=== PATIENT | male | born 1980 | race Caucasian/White ===

== ENCOUNTER → 2018-05-12 15:04 | Outpatient (CLI) | payer BC, SELFPAY ==
[2018-05-12 17:40] LABS: Hematocrit 43.4 % (40-54); Hemoglobin 15.1 g/dl (13.0-16.5); Mean Corp Hgb Conc 34.8 g/gl (32-36); Mean Corpuscular Hgb 32.3 pg (27.0-32.0); Mean Corpuscular Volume 92.7 fL (80-94); Mean Platelet Vol. 9.7 fl (6.2-12.0); Platelet Count 195 K/mm3 (150-450); RBC Distribution Width CV 12.4 % (11.6-14.6); RBC Distribution Width SD 41.3 fl (35.1-43.9); Red Blood Count 4.68 M/mm3 (4.6-6.2); White Blood Count 5.9 K/mm3 (4.4-11.0)
[2018-05-12 17:48] LABS: Scan Indicated on CBC? Y/N NO
[2018-05-12 18:03] LABS: AST(SGOT) 23 U/L (15-37); Alanine Aminotransfer ALT/SGPT 37 U/L (16-61); Albumin, Serum 4.2 g/dL (3.2-5.0); Alkaline Phosphatase 62 U/L (45-117); Bilirubin, Direct 0.08 mg/dL (0.00-0.30); CRP < 2.90 mg/L (0.0-3.0); Globulin 3.1 g/dL (2.2-4.2); Protein, Total 7.3 g/dL (6.4-8.2)
[2018-05-14 16:12] LABS: Endomysial Antibody IgA Negative (Negative)
[2018-05-15 11:13] LABS: Immunoglobulin A 125 mg/dL (90-386); t-Transglutaminase IgA <2 U/mL (0-3)
--- OUTSIDE RECORDS SUMMARY | 2018-07-17 14:25 | XMS RPT_ITS | Clinical Summary ---
:1980 Author Organization [facility] Address [address] [place] [address] Phone Care Team Providers Name Role Phone Donna Minor Unavailable Conditions or Problems Problem Name Problem Onset Status Entry Provider Comment Standard Annotate Code Date Date Description Sprain of S83.91xA Active Feliciano M Sprain of unspecified (ICD-10-CM / Sergio YODER unspecified site of right ) site of knee, initial right knee, encounter initial encounter Knee pain, [id number] Active Feliciano Beckman Knee pain right (SNOMED / Sergio YODER CT) Medications Medication Instructions Start Stop Generic Name NDC Provider Date Date PRILOSEC OTC take as directed OMEPRAZOLE [id number] Rajani E TBEC 3 MAGNESIUM Rivas SHAMPOO ASSISTANT TBEC ADVIL 200 MG take as directed IBUPROFEN [id number] Rajani E CAPS 3 Rivas SHAMPOO ASSISTANT Medications Administered No information available. Allergies, Adverse Reactions, Alerts Allergy Name Reaction Start Date Severity Status Provider Description CODEINE Critical Active Rajani E Rivas PHOSPHATE SHAMPOO ASSISTANT Results Date Name Value Unit Range Flag Description Office Visit MEDS REVIEW Done Documentation of current medications (procedure) SMOK ADVICE yes Smoking cessation education (procedure) ORALTOBACUSE Never Tobacco smoking status NHIS SMOK STATUS Current every Tobacco use [facility] day smoker Plan of Care Type Date Detail Referral Physical Therapy [facility] [address] [place] [address], [address] Referral Physical Therapy [facility], [address] [place] [address], [address] Pending order MRI Joint Lower Extremity Procedures No information available. Vital Signs Date Name Value Unit Description BMI (Body Mass Index) 26.91 kg/m2 Body Mass Index [Ratio] Weight Measured 204 [lb_av] weight E&M - 3141-9 Body Temperature 98.5 [degF] temperature E&M BP Diastolic 66 mm[Hg] blood pressure, diastolic - 8462-4 BP Systolic 144 mm[Hg] blood pressure, systolic - 8480-6 BSA (Body Surface 2.11 body surface area Area) Heart Rate 50 /min pulse rate E&M - 8867-4 Height 73 [in_us] height E&M - 8302-2 O2 % BldC Oximetry 99 % oxygen saturation, oximetry Respiratory Rate 16 /min respiratory rate E&M - 9279-1
--- OUTSIDE RECORDS SUMMARY | 2018-07-17 14:25 | XMS RPT_ITS ---
:1980 Author Organization [facility] Care Team Providers Name Role Phone Fredis Toledo Attending Unavailable Fredis Toledo Referring Unavailable Primay Care Physicia, No Primary Care Unavailable PROBLEMS PROBLEMS No Problem Records FoundPROCEDURES PROCEDURES No Procedure Records FoundRESULTS RESULTS CBC-COMPLETE BLOOD CNT Collected: 05/12/2018 Status: F Source: [place] NO DIFF 3:11 PM [facility] [place] CODE TESTS RESULT OUT OF RANGE REFERENCE UNITS LAB L100.1000 4.4-11.0 K/mm3 Normal WBC 5.9 LAB L100.1200 4.6-6.2 M/mm3 Normal RBC 4.68 LAB L100.1300 13.0-16.5 g/dl Normal HGB 15.1 LAB L100.1400 40-54 % Normal HCT 43.4 LAB L100.1500 80-94 fL Normal MCV 92.7 LAB L100.1600 27.0-32.0 pg High MCH 32.3 LAB L100.1700 32-36 g/gl Normal MCHC 34.8 LAB L100.1810 11.6-14.6 % Normal RDW CV 12.4 LAB L100.1820 35.1-43.9 fl Normal RDW SD 41.3 LAB L100.1900 150-450 K/mm3 Normal PLT 195 LAB L100.2000 6.2-12.0 fl Normal MPV 9.7 Performed By: #### L100.0500 #### [facility] [place], [address] LIVER PROFILE Collected: 05/12/2018 Status: F Source: [place] 3:11 PM [facility] [place] TYPE CODE TESTS RESULT OUT OF RANGE REFERENCE UNITS LAB L501.1500 6.4-8.2 g/dL Normal T PROT 7.3 LAB L501.1800 3.2-5.0 g/dL Normal ALB 4.2 LAB L501.1950 2.2-4.2 g/dL Normal GLOB 3.1 LAB L501.4100 15-37 U/L Normal AST 23 LAB L501.4305 45-117 U/L Normal ALK P 62 LAB L501.4405 16-61 U/L Normal ALT 37 LAB L501.4600 0.20-1.00 mg/dL Normal T BILI 0.60 LAB L501.4700 0.00-0.30 mg/dL Normal D BILI 0.08 Performed By: #### L500.3400, L501.6710 #### [facility] [address], [place], [id number] CRP Collected: 05/12/2018 Status: F Source: [place] 3:11 PM [facility] [place] TYPE CODE TESTS RESULT OUT OF RANGE REFERENCE UNITS LAB L501.6710 0.0-3.0 mg/L Normal < 2.90 C-REACTIVE PROT Result Comment: C-Reactive Protein (CRP) provides useful information for the diagnosis, therapy and monitoring of inflammatory processes and associated diseases. For the evaluation of Relative Risk for Cardiovascular Disease, a High Sensitivity CRP (HSCRP) should be ordered. Performed By: #### L500.3400, L501.6710 #### [facility] [address] [place], [place], [address] CELIAC DISEASE Collected: 05/12/2018 Status: F Source: [place] PROFILE 3:11 PM [facility] [place] TYPE CODE TESTS RESULT OUT OF RANGE REFERENCE UNITS LAB L3200.1400 90-386 mg/dL Normal IMMUNO A 125 Result Comment: Performed at: - [address] [id number] [employer] Foreman: Fredis Floyd PhD, Phone: [phone] LAB L3712.2909 0-3 U/mL Normal tTG IGA <2 Result Comment: Negative 0 - 3 Weak Positive 4 - 10 Positive >10 Tissue Transglutaminase (tTG) has been identified as the endomysial antigen. Studies have demonstr- ated that endomysial IgA antibodies have over 99% specificity for gluten sensitive enteropathy. LAB L3410.2975 Negative Normal ENDOMYSIAL IGA Negative Performed By: #### L3410.2400 #### [facility] (refer to report for specific site) refer to report for address and phone number PROGRESS Observed: 06/10/2017 Status: COMPLETED Source: [place] 8:41 PM [facility] RE[facility] HNO ID: [id number] Author: Campbell Garzon Service: (none) Author Type: Physician Type: Progress Notes Filed: 06/10/2017 9:17 PM Note Text: Patient presents with: Rash: lightheaded, dizziness was on amoxicillin took 3 pills reaction started, switched to zpak yesterday HPI: Treated for right otitis media 06/08/17. He was concerned he was having an allergic reaction to amoxicillin. Online clinic changed his antibiotic to zpak. Last amoxicillin 1 1/2 days ago. Dizziness: Feels like he is moving when he is not. Associated with nausea. No ear pain but the ear still feels plugged. Rash: Location: Behind and below left axilla Present for 2 days MEDICATIONS: omeprazole (PRILOSEC) 10 mg capsule Take 10 mg by mouth once daily. amoxicillin (AMOXIL) 875 mg tablet Take 1 tablet by mouth twice daily for 10 days. IBUPROFEN IB ORAL Take by mouth. ALLERGIES: ALLERGIES Allergen Reactions - Amoxicillin Intolerance - Codeine GI Upset VITALS: BP 100/64 Pulse 60 Temp 36.6 ?C (97.8 ?F) (Tympanic) Resp 14 Wt 88.9 kg (196 lb) PHYSICAL EXAM: GEN: pleasant, no acute distress, alert SKIN: New rash-petechia excoriation left back posterior to and below the level of the axilla. Chronic rash has small patches of faint fine scale on torso. Eyes: PERRL, EOMI, sclera clear Ears: Canals clear; RTM with effusion but without erythema or bulge; LTM without erythema, bulge, or effusion; Sinuses: non-tender frontal, non-tender maxillary Mouth/throat: MMM, no pharyngeal erythema or exudate Neck: Supple, no thyromegaly, nontender, no lymphadenopathy Heart: regular rate and rhythm, no murmurs Lungs: clear to auscultation ASSESSMENT/PLAN: 1. Vertigo - ICD9: 780.4, ICD10: R42 (primary diagnosis) Not likely a symptom of allergic reaction. May be from current ear infection. Finish zpak. Declines antivert. 2. Rash - ICD9: 782.1, ICD10: R21 Excoriation, does not appear to be allergic rash. Campbell Garzon MD PROGRESS Observed: 06/09/2017 Status: COMPLETED Source: [place] 4:02 PM [facility] REPOSITORY HNO ID: [id number] Author: [facility] Provider Service: (none) Author Type: Physician Type: Progress Notes Filed: 06/09/2017 11:12 AM Note Text: null (CCF:Not available [id number]) Visit Summary for Feliciano Landrum - Gender: Male - Date of : 1980 ( ) Date: - Duration: 7 minutes Patient: Feliciano Landrum Provider: Yolande Holden Patient Contact Information Address [address] [place] [address]; [place] [phone] Visit Topics Ihave an ear infection doctor prescribed amoxicillin its making light headed and neausus [Added By: Self - 2017-06-09] Triage Questions Please provide your current address. We need this on file in case of a medical emergency.Answer [[address] [place] [address]] Conversation Transcripts [Notification] You are connected with Yolande Holden Family Physician.[Notification] Feliciano Landrum is located in [place].[Notification] Feliciano Landrum has shared health history...[Notification] Yolande Holden has added a prescription (see the Visit Notes tab). Diagnosis Nausea Value: R11.0 Code: ICD-10-CM Procedures Value: 63888 Code: CPT-4 ONLINE E/M BY PHYS/QHP Medications Prescribed azithromycin Strength : 250 mg Frequency : Patient Instructions : Take 2 tabs po on day 1 then take 1 tab po qd from days 2-5 Refills : 0 Instructions to the Pharmacist : Substitutions allowed Provider Notes We strongly encourage you to share the following record of today's visit with your primary care physician. Mode of Communication: Video HPI: Pt reports that he was seen in Urgent Care with [facility] yesterday and dx with AOM. Started on Amoxicillin and he reports that he has been with anxiousness, nausea, light headiness since he started. He reports that as a kid he was always told that PCN made him sick. He has not been with PCN in a while. Now with new onset px he is with SE. He has no fever. No rash. No breathing issues. He does not want to take the amoxicillin any longer. No recent abx for pt. This is the first abx in many years per patient. PMH: GERDMeds: NSAID's and Prilosec Allergies: Codeine Exam: Gen: Alert, normal mental status and interaction, no visible distress, non- toxic appearance. Resp; wnl. No increased WOBSinus; + congestion Assessment/Plan; 1. AOM; dx yesterday in person at urgent care. On amoxicillin with reported SE and pt requesting change in abx. Will change to zpak for pt. Rare abx use. He is established at [facility] and goes to urgent care as needed. Follow up:1.If there are any questions or problems with the prescription, call [phone] anytime for assistance. 2.Please re-connect for another online visit or see an in-person provider should your symptoms worsen or persist. 3.Taking a probiotic (either in pill form or by eating yogurt that contains probiotics) while using antibiotics can help prevent some of the troublesome side effects that antibiotics can sometimes cause.4.Please print a copy of this note and send it to your regular doctor, or take it to your next visit so it may be included in your medical record. Patient voiced understanding and agrees to plan.Please see your PCP on an annual basis. Electronically signed by: Yolande Holden( ) PROGRESS Observed: 06/08/2017 Status: COMPLETED Source: [place] 7:32 AM [facility] REPOSITORY HNO ID: [id number] Author: Nicole Soto) Sow[place] Service: (none) Author Type: Nurse Practitioner Type: Progress Notes Filed: 06/08/2017 7:46 AM Note Text: HPI Feliciano Landrum is a 37 year old male who presents with cough, congestion, ear pain, sinus pressure. He thinks he has the flu, his child was ill with the flu. He wants to make sure he does not have an ear infection. He has been using Sudafed for cough at home. Review of Systems Constitutional: Positive for chills, fever and malaise/fatigue. HENT: Positive for congestion and ear pain. Negative for sore throat. Respiratory: Positive for cough. Negative for shortness of breath. Cardiovascular: Negative. Negative for chest pain. Gastrointestinal: Positive for diarrhea and nausea. Negative for abdominal pain and vomiting. Musculoskeletal: Positive for myalgias. Skin: Negative. Negative for rash. Neurological: Positive for headaches. BP 132/80 Pulse 66 Temp 37.2 ?C (99 ?F) (Tympanic) Resp 16 Wt 88.9 kg (196 lb) SpO2 99% PAST MEDICAL HISTORY Diagnosis Date - Back pain PAST SURGICAL HISTORY Procedure Laterality Date - TONSILLECTOMY HX ALLERGIES Codeine MEDICATIONS omeprazole (PRILOSEC) 10 mg capsule Take 10 mg by mouth once daily. IBUPROFEN IB ORAL Take by mouth. No family history on file. Social History Substance Use Topics - Smoking status: Current Every Day Smoker - Smokeless tobacco: Never Used - Alcohol use Not on file Physical Exam Constitutional: He is well-developed, well-nourished, and in no distress. HENT: Head: Normocephalic. Right Ear: External ear and ear canal normal. Tympanic membrane is injected. A middle ear effusion is present. Left Ear: Tympanic membrane, external ear and ear canal normal. Nose: Nose normal. No rhinorrhea. Mouth/Throat: Uvula is midline, oropharynx is clear and moist and mucous membranes are normal. Mucous membranes are not pale and not dry. No posterior oropharyngeal edema or posterior oropharyngeal erythema. Eyes: Conjunctivae are normal. Right eye exhibits no discharge. Left eye exhibits no discharge. Neck: Neck supple. Cardiovascular: Normal rate, regular rhythm and normal heart sounds. Pulmonary/Chest: Effort normal and breath sounds normal. No respiratory distress. He has no wheezes. He has no rales. Lymphadenopathy: He has no cervical adenopathy. Neurological: He is alert. Skin: Skin is warm and dry. No rash noted. Nursing note and vitals reviewed. ASSESSMENT/PLAN: 1. Other acute nonsuppurative otitis media of right ear, recurrence not specified - ICD9: 381.00, ICD10: H65.191 - Will begin treatment with Amoxicillin for 10 days - The patient should also be given sudafed for the first 5- 7 days of treatment. - Supportive care with plenty of fluids, rest, and analgesia prn. - AMOXICILLIN 875 MG TABLET - Follow-up with your PCP in 3-5 days if symptoms have not improved or sooner if symptoms worsen - Discussed red flags and need for immediate medical evaluation if any occur. - Discussed supportive care treatment with fluids, rest and analgesia. - Discussed expected course of illness Nicole Deng CNP ALLERGIES ALLERGIES DATE TYPE / CODE NAME / CODE REACTION SEVERITY SOURCE 07/16/2016 Drug codeine/H25517 Nausea/Vom/Diar Unknown [facility] Allergy/4160 1550(RXNORM) [facility] [address]25(SNOMED Repository CT) 02/15/2014 DRUG CODEINE GI UPSET [facility] INGREDI/4195 [facility] 11401(SNOMED Repository CT) ENCOUNTERS ENCOUNTERS ADMIT/DISCHARGE ACCOUNT ADMITTING ENCOUNTER LOCATION SOURCE NUMBER CLASS 05/12/2018 [id number] [facility] ing:MTLAB Repository 06/10/2017/06/10/19 [id number] Ambulatory [address] [place] Repository 06/08/2017/06/10/19 [id number] Ambulatory [address] Repository PAYERS PAYERS ENCOUNTER GUARANTOR PAYER SUBSCRIBER SOURCE 05/12/2018 FELICIANO MULTANI Insurance:ANTHEMPolic WALLACEDOB: [facility] Number: [id number] 42951Zbf: ([phone] [id number] Repository [phone] () Date:[id number] [place] [id number]: 05/12/2018 [facility] Number: Effective Repository Date:2018-05-12
== END ==
PROVIDERS: Referring Provider Internal Medicine Gastroenterology; Visit Provider Internal Medicine Gastroenterology
DX: R10.9 Unspecified abdominal pain (principal); R19.7 Diarrhea, unspecified
CPT/HCPCS: 36415; 80076; 82784; 83516; 85027; 86140; 86255

== ENCOUNTER → 2019-05-18 08:47 | Outpatient (CLI) | payer BC, SELFPAY ==
[2016-07-23 06:10] VITALS: BMI 26.9
[2019-05-23 14:08] LABS: QNTFERON TB Mitogen Value > 10.00 IU/mL (.); QNTFERON TB Nil Value 0.04 IU/mL (.); QNTFERON TB1+ Ag Value 0.05 IU/mL (.); QNTFERON TB2+ Ag Value 0.04 IU/mL (.)
[2019-05-23 14:36] LABS: Angiotensin Convert Enzyme 47 U/L (14-82); HLA B27 Negative (.); QNTIFERON TB Positive Criteria Negative (Negative)
== END ==
PROVIDERS: Referring Provider Ophthalmology; Visit Provider Ophthalmology
DX: H20.021 Recurrent acute iridocyclitis, right eye (principal)
CPT/HCPCS: 36415; 81374; 82164; 86480

== ENCOUNTER 2021-02-13 15:38 | Emergency (ER) | payer BC, SELFPAY ==
[2021-02-13 15:39] VITALS: BP 127/71; PULSE 65; RESP 14; TEMP 36.7; O2SAT 98; BMI 24.7
--- NOTE | 2021-02-13 15:54 | EDS_ITS ---
HPI History of Present Illness Chief Complaint: Rash Detail of Chief Complaint: Redness and swelling to the left forearm Informant: patient Narrative Narrative: Patient presents with redness and swelling to left forearm that he initially noticed yesterday less than 24 hours ago. Patient states that he had a small circular area that was itchy. He is not sure if he got stung by an insect as he did not feel 1. Today he is noticed increased redness and swelling and there was an area that looked like there was spreading up towards his antecubital region. He has had no fevers or chills or sweats. Patient denies IV drug use. Patient is a smoker. Prior similar symptoms: Yes PFSH PFSH Home Medications NK 02/13/21 [History Last Taken Unknown] clindamycin HCl [Cleocin HCl] 300 mg PO Q6H #40 capsule 02/13/21 [Rx Last Taken Unknown] Allergy/AdvReac Type Severity Reaction Status Date / Time codeine Allergy Nausea/Vom/ Verified 02/13/21 15:39 Diarrhea Penicillins [PCN] Allergy Hives Verified 02/13/21 15:39 Surgical History (Updated 02/13/21 @ 15:49 by Teresa Beach) Hx of tonsillectomy Social History Smoking Status: Current every day smoker tobacco type: cigarettes ROS ROS ED Constitutional Constitutional ED: Reports systems reviewed and no addt'l complaints, except as documented; Denies body ache(s), change in weight or chills Eyes Eyes: Denies acute decrease in peripheral vision, change in vision, double vision or loss of vision ENT ENT ED: Reports none; Denies ear pain, lip swelling, loss taste/smell, neck pain, otalgia or sore throat Cardiovascular Cardiovascular: Reports none; Denies abdominal pain, chest pain with activity, leg edema, lightheadedness, palpitations, rapid heart rate or syncope Respiratory/Chest Respiratory/Chest: Reports none; Denies change in mental status, dry cough, dyspnea, hemoptysis, shortness of breath at rest or shortness of breath with exertion Gastrointestinal Gastrointestinal: Reports none; Denies abdominal pain, change in stool character, diarrhea, hematemesis, hematochezia, melena, rectal bleeding or vomiting Genitourinary Genitourinary ED: Reports none; Denies abdominal discomfort, anuria, dysuria, genital pain or polyuria Musculoskeletal Musculoskeletal: Reports none; Denies arthralgias, back pain, difficulty walking, extremity pain, muscle weakness or myalgias Integumentary Reports none, rash and other Details: Redness and swelling to left forearm ; Denies abscess Neurologic Neurologic: Reports none; Denies abnormal gait, confusion, focal weakness, frequent falls, headache(s), loss of vision, numbness, paresthesias, radicular pain, vertigo or weakness Psychiatric Psychiatric: Reports systems reviewed and no addt'l complaints, except as documented and none; Denies behavioral changes, confusion, difficulty concentrating, hallucinations, suicidal ideation, tactile hallucinations or visual hallucinations Endocrine Endocrinology: Denies none, cold intolerance, excessive sweating, fatigue or heat intolerance Hematologic/Lymphatic Hematologic/Lymphatic: Reports none; Denies anemia, easy bleeding or easy brui sing Allergic/Immunologic Allergic/Immunologic ED: Denies as per HPI, none, lip swelling, mouth swelling, throat swelling, tongue swelling or hives EXAM Physical Exam Const Vital Signs: 02/13/21 15:39 Temperature 98.1 F Temperature Source Temporal Pulse Rate 65 Respiratory Rate 14 Blood Pressure 127/71 H Blood Pressure Mean 89 Pulse Ox 98 Oxygen Delivery Method Room Air Positive well nourished and well developed General Appearance ED: well developed and NAD HEENT Reports TM's clear and moist mucous membranes normocephalic and atraumatic; Negative for trauma or tenderness Tympanic Membrane ED: Yes TM's clear Eyes PERRL and EOMs intact bilaterally General Eye ED: Negative for pale conjunctiva or scleral icterus Neck no lymphadenopathy, supple and no JVD General: Negative for tenderness Chest Wall inspection of chest normal and palpation of chest normal Chest: Negative for tenderness Resp normal respiratory effort and clear to auscultation bilaterally Effort and Inspection: Negative for respiratory distress or pain with movement Auscultation: Negative for rhonchi, wheezes or diminished lung sounds Cardio regular rate, regular rhythm, S1 normal heart sound, S2 normal heart sound and no murmurs Peripheral Pulses: pulses 2+ throughout GI normal to inspection, nondistended, normoactive bowel sounds, soft to palpation, non-tender, non-distended and no masses Back/Spine no CVA tenderness and no thoracic nor lumbar tenderness Extremity Extremity Narrative: Patient has redness and swelling to the left forearm. No obvious breaks in the skin noted except over central mid forearm there is a small area where the patient felt there was a small opening in the skin that if pressed some serous fluid with come from. I could not appreciate any drainage from the wound. Patient does have some faint streaking to the antecubital region. Area of erythema measures 12 cm x 6 cm General Extremety ED: Yes edema General Extremity: edema Neuro oriented x3, CN's II-XII intact bilaterally, no sensory deficits noted and gait normal Sensorium / Orientation: awake, alert, oriented to person, oriented to place and oriented to time Motor Exam: strength 5/5 throughout and strength abnormal Psych mental status grossly normal Skin no rashes or lesions noted and no wounds MDM MDM MDM Narrative Medical decision making narrative: Patient looks well. There is no abscess to drain at this time. I suspect likely cellulitic changes however is unclear if this is from an insect bite. Patient will be started on clindamycin p.o. as he is pen allergic. Patient advised to return if fever, increased redness or swelling, or condition should worsen anyway. Patient had the area of erythema outlined with permanent marker. Discharge Plan Triage Chief Complaint: Rash ED Provider: Wagner Zhou Dx/Rx/DC Orders Clinical Impression: Cellulitis of forearm, left Instructions: ED Cellulitis Prescriptions: New clindamycin HCl [Cleocin HCl] 300 MG capsule 300 mg PO Q6H Qty: 40 RF: 0 No Action NK RF: 0 Primary Care Provider: Care Physician,No Primary Referrals: Sandeep Haque MD [STAFF PHYSICIAN] - 2 Days for wound check Care Physician,No Primary [Primary Care Provider] - Disposition Disposition: Home, Self Care
[2021-02-13] MEDS: Clindamycin HCl 150 MG Capsule 300 MG PO (16:08)
== END 2021-02-13 16:10 | disposition home or self-care (01) ==
LOC: ED 16:06
PROVIDERS: Emergency Provider Emergency Medicine
DX: L03.114 Cellulitis of left upper limb (principal); F17.210 Nicotine dependence, cigarettes, uncomplicated
CPT/HCPCS: 99281; 99283

== ENCOUNTER 2021-07-05 11:02 | Emergency (ER) | payer OTHER, BC, SELFPAY ==
[2021-07-05 11:03] VITALS: BP 137/56; PULSE 49; RESP 16; TEMP 35.8; O2SAT 100; BMI 22.4
--- NOTE | 2021-07-05 11:55 | RAD_ITS ---
STUDY: X-RAY - LEFT HAND, ATTENTION FIFTH FINGER REASON FOR EXAM: Male, 41 years old. Injury -- 5th finger TECHNIQUE: 3 view(s) of the finger were obtained. COMPARISON: None. FINDINGS: Normal metacarpal head. Normal metacarpophalangeal joint. Normal proximal phalanx. Normal middle phalanx. Avulsion fracture involving the tuft of the distal phalanx of the fifth digit. Normal proximal interphalangeal joint. Normal distal interphalangeal joint. Soft tissue swelling. RAD/Finger(s) Min 2 Views IMPRESSION: Tiny avulsion fracture of the tuft of the distal phalanx of the fifth digit. Electronically Signed: Francisco Daley MD at 12:50 EST ,
--- NOTE | 2021-07-05 12:16 | EX.ED.UPPERE ---
HPI History of Present Illness Chief Complaint: Laceration Informant: patient Occured/Mechanism Mechanism/Context: Yes blunt trauma and Yes work related Onset/Context/Timing Onset: Today Context: Sudden Onset Timing: Continuous Quality of Pain: Aching Location: Left little finger Current Severity: Mild Maximum Severity: Severe Worsened by: Palpation, moving Relieved by: Keeping it wrapped and remaining still Associated Symptoms Associated Symptoms: Negative for Parasthesia, Weakness and Loss of Funtion Narrative Narrative: Patient works for a local [employer], he was using a tool a pair of channel locks and accidentally crushed his little finger while working on a line. [id number]. Tetanus Immunization: >10 years PFSH PFSH Medical History Smoker Medical History no medical history no medical history Home Medications cefadroxil 500 mg PO BID #14 cap 07/05/21 [Rx Last Taken Unknown] Allergy/AdvReac Type Severity Reaction Status Date / Time codeine Allergy Nausea/Vom/ Verified 07/05/21 11:05 Diarrhea Penicillins [PCN] Allergy Hives Verified 07/05/21 11:05 Surgical History (Updated 07/05/21 @ 12:44 by Blane Lee) Hx of arthroscopy of right knee Hx of tonsillectomy Social History Smoking Status: Current every day smoker tobacco type: cigarettes ROS ROS ED Constitutional Constitutional ED: Denies chills or fever(s) Musculoskeletal Musculoskeletal: Reports extremity pain; Denies neck pain Integumentary Reports wounds; Denies Abrasions or rash Neurologic Neurologic: Denies paresthesias or weakness EXAM Physical Exam Const Vital Signs: 07/05/21 11:03 Temperature 96.4 F L Temperature Source Temporal Pulse Rate 49 L Respiratory Rate 16 Blood Pressure 137/56 H Blood Pressure Mean 83 Pulse Ox 100 Oxygen Delivery Method Room Air Positive well nourished and well developed General Appearance ED: well developed and NAD Neck full ROM and supple Back/Spine normal ROM and normal to inspection Extremity Extremity Narrative: Tender distal phalanx left fifth finger. No deformities. Nailbed laceration and nail injury. Limited range of motion at the DIP joint only. Able to extend without any difficulty. Neuro oriented x3, no focal motor deficits and no sensory deficits noted Sensorium / Orientation: alert Psych mental status grossly normal and thought process normal Skin Skin Narrative: Laceration across the dorsum of the distal phalanx of the left small finger involving the nail, the distal half of the nail is present and adherent to the nail bed distal to the lac, completely from the proximal nail, the proximal half is intact in the cuticle and the nailbed, with a full-thickness nailbed laceration 2.5 cm progressing beyond the nailbed on either side as well. Rashes: no rashes MDM MDM MDM Narrative Medical decision making narrative: X-ray shows an avulsion fracture at the distal tip of the distal phalanx, so he will be put on prophylactic antibiotics given that this is a minor open fracture of the finger. The laceration was repaired and the nail was removed see the procedure note. Follow-up with Workmen's Comp. given appropriate work restrictions. Offered analgesics besides ibuprofen but the patient declined so he was given a dose of ibuprofen prior to discharge. The bulky dressing he has will work adequately as a splint for this. Procedures Lacerations left 5th finger nailbed: Length: 2.5 cm Depth: Sub Q Shape: Linear (mostly) Prep: Sterile Conditions and Chlorhexadine Laceration repair: Digital block, Irrigated and Lidocaine (11cc, 1%) Irrigated (ml): 100 Number of Sutures/Veblen: 5 Suture Information: Ethilon, Simple and 5-0 Other Procedures Procedure(s): Nail removal after digital block; the 2 halves of the nail were both removed separately, by bluntly dissecting them with the backside of scissors from the nailbed. No additional injury to the nailbed was caused. After repairing the nailbed laceration, 3 sutures to the nailbed directly and one to either side of it for a total of 5, the proximal half of the nail was replaced back into the nail fold with bacitracin and I placed a bulky gauze dressing on top of this. Tolerated well, no complications of any of the procedures. Discharge Plan Triage Chief Complaint: Laceration ED Provider: Obed Butler Dx/Rx/DC Orders Clinical Impression: Nailbed laceration, finger, Laceration of finger without foreign body with damage to nail, Open fracture of tuft of distal phalanx of finger Instructions: ED Laceration, Hand: All Closures Prescriptions: New cefadroxil 500 mg capsule 500 mg PO BID Qty: 14 RF: 0 Primary Care Provider: Care Physician,No Primary Referrals: [facility] PHYSIC[facility]] - As soon as possible (call for appt) Care Physician,No Primary [Primary Care Provider] - Disposition Disposition: Home, Self Care
[2021-07-05] MEDS: Lidocaine 1% (20 ml mdv) 20 ML Vial INFILT (12:52)
[2021-07-05] MEDS: Diphth,Pertuss(Acell),Tet Vac 0.5 ML Vial IM (12:52)
[2021-07-05 14:03] VITALS: BP 122/72; PULSE 53; RESP 16; O2SAT 97
[2021-07-05] MEDS: Ibuprofen 600 MG Tablet PO (16:21)
[2021-07-05 17:08] VITALS: PULSE 84; RESP 16; O2SAT 99
--- NOTE | 2021-07-05 17:09 | ED.RN ---
THIS NURSE REVIEWED D/C INSTRUCTIONS WITH PT AND VISITOR. PT VERBALIZED UNDERSTANDING OF INSTRUCTIONS. PT DENIES FURTHER NEEDS OR QUESTIONS AT THIS TIME. PT AMBULATES FROM ROOM ON OWN WITHOUT ASSISTANCE FROMS [facility]
== END 2021-07-05 17:10 | disposition home or self-care (01) ==
PROVIDERS: Emergency Provider Emergency Medicine; Visit Provider Emergency Medicine
DX: S61.317A Laceration without foreign body of left little finger with damage to nail, initial encounter (principal); S62.639B Displaced fracture of distal phalanx of unspecified finger, initial encounter for open fracture; Y99.0 Civilian activity done for income or pay; W23.0XXA Caught, crushed, jammed, or pinched between moving objects, initial encounter; F17.210 Nicotine dependence, cigarettes, uncomplicated; Z23 Encounter for immunization
CPT/HCPCS: 11760; 73140; 90471; 90715; 99284

== ENCOUNTER → 2023-08-21 | Outpatient (CLI) | payer BC, SELFPAY ==
[2023-08-21 17:39] LABS: Cytology, Semen SEE PATHOLOGY REPORT
--- NOTE | 2023-08-24 | CYSPIN_PTH ---
PATIENT: IRENE AGRAWAL LOC: [facility] U#:[id number] AGE/SX: 43/M ROOM: RE08/21/[address]: Dr. Jose Boyd II, MD : [id number] BED: DIS: 08/21/2023 SPEC #: [id number] RECD: 08/24/23 10:42 STATUS: LILIANA REAdriane #: [id number] NASIR: 08/24/23 00:[address]: Jose Boyd II DEPT: CYTOLOGY RECD BY: Bimal Santillan ENTERED: 08/24/23 10:42 SP TYPE: CYSPIN FL OTHR DR: No Primary Care Phys Tissues: Cytologic material, NOS Procedures: Pap Stain (control) Special Stain Group II Cytospin Fluid HEADER OPERATION: Post vasectomy PRE-OP DIAGNOSIS: Post vasectomy status TISSUE SUBMITTED: Seminal fluid DIAGNOSIS CYTOLOGY Seminal fluid for cytology (cytospins): No spermatozoa identified. AM/mr 4/30/24 CYTOLOGY STUDY Slides are reviewed. CYTOLOGY GROSS Received is 0.25 ml of thick cloudy fluid labeled with the patient's name and and designated per the requisition as Seminal fluid. Submitted for cytology preparation including cell block. mr 08/24/2023 TC:5 CPT: 09488
== END | disposition home or self-care (01) ==
LOC: MTLAB 16:27
PROVIDERS: Referring Provider Urology; Visit Provider Urology
DX: Z30.8 Encounter for other contraceptive management (principal); Z98.52 Vasectomy status
CPT/HCPCS: 88108; 88313

== ENCOUNTER 2025-03-19 21:46 | Emergency (ER) | payer BC, SELFPAY ==
[2025-03-19 21:46] VITALS: BP 157/84; PULSE 61; RESP 16; TEMP 36.2; O2SAT 99; BMI 27.0
--- NOTE | 2025-03-19 22:10 | EKG12_ITS ---
Test Reason : Blood Pressure : */* mmHG Vent. Rate : 70 BPM Atrial Rate : 70 BPM P-R Int : 154 ms QRS Dur : 98 ms QT Int : 394 ms P-R-T Axes : 72 81 72 degrees QTcB Int : 425 ms Normal sinus rhythm Normal ECG Confirmed by GENEVA PEPE, DINESH ([id number]), technical editor SHAVONNE RANGEL ([id number]) on 03/20/2025 1:09:51 PM Referred By: Confirmed By: DINESH BEAN MD
--- NOTE | 2025-03-19 22:15 | RAD_ITS ---
PROCEDURE: CHEST 1 VIEW (PORTABLE) 03/19/2025 REASON FOR EXAM: CHEST PRESSURE AND HEARTBURN TECHNIQUE: Frontal view of the chest. FINDINGS: No focal consolidation. No pleural effusion or pneumothorax. Cardiac silhouette is within normal limits. No acute fractures. RAD/Chest 1 View (Portable) IMPRESSION: No focal consolidations. Reading Location: [id number]
[2025-03-19] MEDS: Lidocaine 2% Viscous15 ML UDC 15 ML PO (22:16)
[2025-03-19 22:19] LABS: Hematocrit 40.5 % (40-54); Hemoglobin 14.0 g/dL (13.0-16.5); Immature Granulocytes Count 0.010 X10^3/uL (0.0-0.0); Mean Corp Hgb Conc 34.6 g/dL (32-36); Mean Corpuscular Volume 89.4 fL (80-94); Mean Platelet Vol. 9.1 fl (6.2-12.0); NRBC Flagged by Analyzer 0 % (0-5); Platelet Count 191 K/mm3 (150-450); RBC Distribution Width CV 11.9 % (11.6-14.6); RBC Distribution Width SD 38.8 fl (35.1-43.9); Red Blood Count 4.53 M/mm3 (4.6-6.2); White Blood Count 7.7 K/mm3 (4.4-11.0)
--- OUTSIDE RECORDS SUMMARY | 2025-03-19 22:40 | XMS RPT_ITS | CCD ---
Author Organization [facility] Care Team Providers Care Mechanist Name Role Phone Donna Minor Unavailable Unavailable Primary Care Provider Unavailabl e Generic Provider , No Assigned Pcp Primary Car e Provider Unavailable Florida Boyd MD Unavailable Generic Provider , No Assigned Pcp Primary Car e Provider Unavailable FLORIDA BOYD Attending Unavailable GENERIC PROVIDER, NO ASSIGNED PCP Primary Care Unavailable Care Physician, No Primary Primary Care Provider Unavailable Care Physician, No Primary Referring Provider Un available BEBA Dc Attending Provider [phone] Feliciano Dc Attending Unavailable Care Physician, No Primary Referring Unava ilable Care Physician, No Primary Primary Care Unava ilable Care Physician, No Primary Primary Care Unava ilable Florida Boyd II Referring Unavailable Florida Boyd II Attending Unavailable Unavailable Primary Care Provider UnavailEDGARDO Boogie Attending Unavailable SHIRA LORA Referring Unavailable Allergies Allergy Classification Reported Allergen(s) Allergy Type Date of Onset Reaction(s) Facility Opioid Agonists (1 source) Codeine Drug Allergy 4 GI Upset [facility] Penicillins (antibiotic) (2 sources) Amoxicillin Drug Allergy 8 Intolerance, Hives [facility] (1 source) codeine drug allergy 7 [facility] Work Phone: (9 sources) Amoxicillin; Translations: [AMOXICILLIN] Drug Allergy 8 Intolerance [facility] Work Phone: (13 sources) Codeine; Translations: [CODEINE] Drug Allergy 4 GI Upset [facility] (11 sources) Penicillins; Translations: [PENICILLINS] Drug Allergy 3 Hives, Other [facility] (1 source) Penicillins Allergy to substance 2 Hives [facility] (1 source) Codeine Drug Allergy 2 [facility] (1 source) Penicillins Drug allergy (disorder) 2 [facility] Medications Current Medications Medication Drug Class(es) Dates Sig (Normalized) Sig (Original) cephalexin 500 mg oral capsule (1 source) Cephalosporin Antibacterial Start: 11-07-2023 End: 11-14-2023 take 1 capsule by mouth four times daily cephALEXin (KEFLEX) 500 mg capsule Take 1 capsule by mouth four times daily for 7 days. 28 capsule 0 11/07/2023 11/14/2023 Active clotrimazole 10 mg/ml topical cream (2 sources) Azole Antifungal Start: 10-14-2023 End: 10-28-2023 clotrimazole (LOTRIMIN) 1 % cream Indications: Rash Apply to affected area two times a day for 14 days. 24 g 0 10/14/2023 10/28/2023 Active diazePAM 10 mg oral tablet (1 source) Benzodiazepine Start: 06-15-2023 take 1 tablet by mouth once diazePAM (Valium) 10 mg tablet Indications: Vasectomy evaluation Take 1 tablet (10 mg) by mouth 1 time for 1 dose. 1 tablet 0 06/15/2023 Active doxycycline hyclate 100 mg oral tablet (4 sources) Tetracycline-class Drug Start: 10-14-2023 End: 10-21-2023 take 1 tablet by mouth twice daily doxycycline (VIBRA-TABS) 100 mg tablet Indications: Rash Take 1 tablet by mouth two times a day for 7 days. 14 tablet 0 10/14/2023 10/21/2023 Active Start: 03-29-2023 End: 04-05-2023 take 1 tablet by mouth twice daily doxycycline monohydrate 100 mg tablet Indications: Skin infection Take 1 tablet by mouth two times a day for 7 days. 14 tablet 0 03/29/2023 04/05/2023 Active Start: 03-05-2023 End: 03-12-2023 take 1 tablet by mouth twice daily doxycycline (VIBRA-TABS) 100 mg tablet Indications: ETD (Eustachian tube dysfunction), right Take 1 tablet by mouth two times a day for 7 days. 14 tablet 0 03/05/2023 03/12/2023 Active Comment on above: Take 1 tablet by [facility] two times a day for 7 days. fluticasone propionate 0.05 mg/actuat metered dose nasal spray (10 sources) Corticosteroid Start: take 2 spray(s) by mouth once daily fluticasone (FLONASE) 50 mcg/actuation nasal spray Indications: ETD (Eustachian tube dysfunction), right Use 2 Sprays in each nostril once daily. Rinse mouth after use. 1 Each 03/05/2023 Active Start: 03-05-2023 take 2 spray(s) by [facility] once daily fluticasone (Flonase) 50 mcg/actuation nasal spray instill 2 sprays into each nostril once daily Rinse mouth after use 0 03/05/2023 Active Comment on above: Use 2 Sprays in each nostril once daily. Rinse mouth after use. predniSONE 10 mg oral tablet (1 source) Start: 03-05-2023 End: 03-17-2023 predniSONE (DELTASONE) 10 mg tablet Indications: ETD (Eustachian tube dysfunction), right Take 4 tabs daily x 3 days, then 3 tabs x 3 days, 2 tabs x 3 days, then 1 tab x3 days with food. 30 tablet 0 03/05/2023 03/17/2023 Active Comment on above: Take 4 tabs daily x 3 days, then 3 tabs x 3 days, 2 tabs x 3 days, then 1 tab x3 days with food. Completed/Discontinued Medications Medication Drug Class(es) Dates Sig (Normalized) Sig (Original) cefadroxil 500 mg oral capsule (1 source) Cephalosporin Antibacterial Start: 07-05-2021 End: 07-31-2021 take 500 mg by mouth twice daily Cefadroxil Discontinued 500 MG PO TWICE A DAY July 05, 2021 1:00am July 31, 2021 6:53am ibuprofen 200 mg oral tablet (2 sources) Nonsteroidal Anti-inflammatory Drug Start: 06-19-2016 ADVIL 200 MG CAPS take as directed IBUPROFEN [id number] Rajani Rivas LPN End: 10-01-2022 IBUPROFEN IB ORAL Take by [facility]. 0 10/01/2022 Discontinued Comment on above: Take by mouth. OMEPRAZOLE MAGNESIUM TBEC (2 sources) Proton Pump Inhibitor Start: 06-19-2016 PRILOSEC OTC TBEC take as directed OMEPRAZOLE MAGNESIUM TBEC [id number] Rajani Cardozo Rob MARKS End: 10-01-2022 take 1 capsule by mouth once daily omeprazole (PRILOSEC) 10 mg capsule Take 10 mg by mouth once daily. 0 10/01/2022 Discontinued Comment on above: Take 10 mg by mouth once daily. Problems Active Problems Problem Classification Problem Date Documented Date Episodic/Chronic Administrative/social admission (2 sources) Administrative reason for encounter; Translations: [Encounter for other administrative examinations] 07-12-2021 Episodic Contraceptive and procreative management (7 sources) Patient encounter status; Translations: [Encounter for other general counseling and advice on contraception] Onset: 03-16-2023 03-16-2023 Episodic Fracture of upper limb (2 sources) Open fracture of distal phalanx of finger; Translations: [Displaced fracture of distal phalanx of unspecified finger, initial encounter for open fracture] 07-17-2021 Episodic Mycoses (1 source) Tinea pedis; Translations: [Tinea pedis] 11-19-2023 Episodic Open wounds of extremities (3 sources) Laceration of nail bed of finger ; Translations: [Laceration without foreign body of unspecified finger with damage to nail, initial encounter] 07-13-2021 Episodic Other connective tissue disease (1 source) Diastasis recti; Translations: [Separation of muscle (nontraumatic), other site] Episodic Other skin disorders (2 sources) Eruption; Translations: [Rash and other nonspecific skin eruption] 10-14-2023 Episodic Other upper respiratory infections (1 source) Sore throat symptom; Translations: [Acute pharyngitis, unspecified] 05-04-2024 Episodic Otitis media and related conditions (1 source) Dysfunction of right eustachian tube; Translations: [Unspecified Eustachian tube disorder, right ear] 03-05-2023 Episodic Skin and subcutaneous tissue infections (3 sources) Infection of skin; Translations: [Local infection of the skin and subcutaneous tissue, unspecified] 03-29-2023 Episodic Past or Other Problems Problem Classification Problem Date Documented Da te Episodic/Chronic Other non-traumatic joint disorders (1 source) Knee pain; Translations: [Pain in right knee] Onset: 06-19-2016 06-19-2016 Episodic Other skin disorders (1 source) Rash and other nonspecific skin eruption; Translations: [Rash] Onset: 11-19-2023 Episodic Sprains and strains (1 source) Sprain of unspecified site of right knee, initial encounter; Translations: [Sprain of unspecified site of right knee, initial encounter] Onset: 06-19-2016 06-19-2016 Episodic Results Test Name Value Interpretation Reference Range Facility [facility] 05-04-2024 CNOV Office Visit (UCWSTR ) FELICIANO AGRAWAL ([id number]) 1980 M Date Time Provider Department 05/04/24 7:15 AM DIONNA OBRIEN [facility] During your visit today, we recorded the following information about you: Temperature Pulse Respiration Blood pressure 98.4 degrees 72/minute 16/minute 130/74 Weight 95 kg Dionna Obrien APRN.WILD LIFE MANAGER 05/04/2024 7:30 AM Signed Subjective HPI Nontoxic-appearing 43-year-old male presents urgent care chief complaint pharyngitis. Duration of symptoms 1 day. Associated symptoms rhinorrhea sore throat body aches chills low-grade temperature. OTC medications adequate success. Most bothersome symptom today is pharyngitis. Able to swallow handle secretions decreased range of motion of neck was not noted. No trismus. No high fevers. Past medical history prescription medications allergies reviewed. .Patient presents with: Sore Throat: x 1 day PAST MEDICAL HISTORY Diagnosis Date Back pain PAST SURGICAL HISTORY Procedure Laterality Date KNEE SURGERY HX Right meniscus repair TONSILLECTOMY HX ALLERGIES Amoxicillin, Codeine, and Penicillins MEDICATIONS fluticasone (FLONASE) 50 mcg/actuation nasal spray Use 2 Sprays in each nostril once daily. Rinse mouth after use. (Patient not taking: Reported on 10/14/2023) History reviewed. No pertinent family history. Social History Tobacco Use Smoking status: Former Current packs/day: 0.00 Types: Cigarettes Quit date: 08/2023 Years since quittin.6 Smokeless tobacco: Never BP 130/74 Pulse 72 Temp 36.9 ?C (98.4 ?F) Resp 16 Wt 95 kg (209 lb 7 oz) SpO2 97% BMI 27.63 kg/m? Review of Systems Constitutional: Positive for chills and malaise/fatigue. Negative for fever. HENT: Positive for congestion and sore throat. Negative for ear discharge, ear pain and sinus pain. Eyes: Negative for blurred vision, pain, discharge and redness. Respiratory: Negative for cough, hemoptysis, sputum production, shortness of breath, wheezing and stridor. Cardiovascular: Negative for chest pain. Gastrointestinal: Negative for abdominal pain, diarrhea, nausea and vomiting. Musculoskeletal: Positive for myalgias. Skin: Negative for itching and rash. Neurological: Negative for dizziness and headaches. Objective Physical Exam Constitutional: General: He is not in acute distress. Appearance: He is not diaphoretic. HENT: Head: Normocephalic. Jaw: No trismus, tenderness, swelling or pain on movement. Nose: Congestion present. Mouth/Throat: Mouth: Mucous membranes are moist. Pharynx: Oropharynx is clear. Uvula midline. No pharyngeal swelling, oropharyngeal exudate, posterior oropharyngeal erythema or uvula swelling. Eyes: Conjunctiva/sclera: Conjunctivae normal. Pupils: Pupils are equal, round, and reactive to light. Cardiovascular: Rate and Rhythm: Normal rate and regular rhythm. Heart sounds: Normal heart sounds. Pulmonary: Effort: Pulmonary effort is normal. No tachypnea, accessory muscle usage or respiratory distress. Breath sounds: Normal breath sounds. No stridor. No wheezing, rhonchi or rales. Abdominal: General: There is no distension. Palpations: Abdomen is soft. Tenderness: There is no abdominal tenderness. There is no guarding or rebound. Musculoskeletal: Cervical back: Normal range of motion and neck supple. No edema, erythema, rigidity or tenderness. No pain with movement. Normal range of motion. Lymphadenopathy: Cervical: No cervical adenopathy. Skin: General: Skin is warm and dry. Neurological: Mental Status: He is alert and oriented to person, place, and time. ASSESSMENT/PLAN: 1. Sore throat - ICD9: 462, ICD10: J02.9 - STREP A MOLECULAR (POC) Strep test negative. No evidence of bacterial infection noted on today's assessment. We discussed other viral testing. Declined at this point. Patient was educated on supportive therapies. Patient will follow up with primary care provider as needed. Patient was instructed to immediately proceed to emergency room for any new, worsening, or symptoms lasting longer than anticipated. The patient's clinical presentation is otherwise unremarkable at this time. Based on exam and clinical finding, the patient is stable for discharge. Plan of care was discussed with patient. Patient verbalizes understanding and agrees to plan of care. This note was generated using [employer] software. It may contain errors in wording, punctuation, or spelling. Dionna Obrien APRN.Dionna Parrish APRN.THOMAS 05/04/2024 7:19 AM Signed [facility] PATIENT INFO PHARYNGITIS OVERVIEW A sore throat (pharyngitis) is a common problem, and usually is caused by a viral or bacterial infection. Sore throat usually resolves on its own without complications in adults, although it is important to know when to seek medical attention. Viruses can cause a (more content not included)... Normal [facility] STREP A MOLECULAR (POC)on Procedural Control Valid [facility] Strep A (POCT) Negative Negative [facility] CNOVon 11-19-2023 CNOV Office Visit (PODIWS ) FELICIANO AGRAWAL ([id number]) 1980 M Date Time Provider Department 11/19/23 8:15 AM EDGARDO HEARN PODIWS During your visit today, we recorded the following information about you: Clarissa Gipson LPN 11/19/2023 8:26 AM Signed [facility] ROOMING INTAKE FLOWSHEET DATA Patient presents with: Left Foot - Athlete Foot, New Right Foot - Athlete Foot, New Clarissa Gipson, Edgardo Nina 11/19/2023 8:26 AM Signed Consultation requested by Dr. Lora for an opinion regarding athlete's foot. My final recommendations will be communicated back to the requesting physician by way of shared Medical record or letter to requesting physician via US mail. Initial Podiatric Office Visit: Chief Complaint: This 43 year old male who presents with chief complaint:athlete's foot HPI Patient presents to clinic for evaluation of b/l feet Had athlete's foot that began back in September. First started with over the counter creams and sprays but that did not improve He went to his primary care provider (via urgent care) and had wound culture performed. He was placed on oral steroid and topical cream He states the foot is much better now. PAIN EVALUATION No data found in the last 1 encounters. No results found for: HBA1C PCP: No primary care provider on file. PAST MEDICAL HISTORY Diagnosis Date Back pain Current Outpatient Medications Medication Sig fluticasone (FLONASE) 50 mcg/actuation nasal spray Use 2 Sprays in each nostril once daily. Rinse mouth after use. (Patient not taking: Reported on 10/14/2023) No current facility-administered medications for this visit. ALLERGIES Allergen Reactions Amoxicillin Intolerance Codeine GI Upset Penicillins Hives PAST SURGICAL HISTORY Procedure Laterality Date KNEE SURGERY HX Right meniscus repair TONSILLECTOMY HX No family history on file. Social History Tobacco Use Smoking status: Former Types: Cigarettes Quit date: 08/2023 Years since quittin.2 Smokeless tobacco: Never REVIEW OF SYSTEMS GENERAL: Negative for Malaise, significant weight loss, fever RESPIRATORY: Negative for cough, wheezing and shortness of breath CARDIOVASCULAR: Negative for chest pain, leg swelling and palpitations GI: Negative for abdominal discomfort, blood in stools or black stools and change in bowel habits : Negative for dysuria, frequency and incontinence MUSCULOSKELETAL: Negative for joint pain or swelling, back pain, and muscle pain. SKIN: Negative for lesions, rash, and itching. HEMATOLOGY/LYMPHOLOGY Negative for prolonged bleeding, bruising easily, and swollen nodes. ENDOCRINE: Negative for cold or heat intolerance, polyuria, polydipsia and goiter. NEURO: negative Physical Exam: Constitutional: Pt is a well developed 43 year old male who is alert, oriented and cooperative Eyes: Following during examination. No redness or drainage. Respiratory: RR normal and nonlabored. Even breathing. No evidence of distress or shortness of breath. Psychology: Patient is engaged during conversation. Normal affect and mood. Does not appear depressed or anxious during encounter. Vascular: Dorsalis pedis and posterior tibial pulses palpable as b/l Capillary Fill time < 5 seconds to digits 1-5 b/l Skin temperature warm to warm proximal to distal b/l Hair growth present to digits Neurological: intact light touch/epicritic sensation b/l intact protective sensation no significant neurological deficits Dermatological: Nails 1-5 b/l appear normal. Webspaces clean and dry 1-4 b/l. Skin appears well hydrated and supple. good color, texture, turgor. No open lesions present. No callosities present. Musculoskeletal/Ortho paedic: Patient has no pain to palpation of b/l feet Radiographs: n/a ASSESSMENT: (B35.3) Tinea pedis of right foot (primary encounter diagnosis) (R21) Rash PLAN: 1. History and physical examination performed. 2. Rash to right foot has resolved. 3. Continue with antifungal cream for 1-2 more weeks. 4. Make sure to dry between toes 5. Can use powder as needed 6. Discussed light color socks 7. If condition returns, call for immediate follow-up Edgardo Hearn DPM Podiatry [address] [id number] Dept: [phone] Dept Edgardo Hearn 11/19/2023 8:23 AM Signed Your foot is improving Continue with the fungal cream for 1-2 more weeks or until improve Make sure to dry between toes Use powder if necessary Follow-up if condition returns. Referring Provider: SHIRA LORA [[id number]] Allergies As of Date: 11/19/2023 Noted Allergy Reaction AMOXICILLIN 06/10/2017 5 - Intolerance CODEINE 02/15/2014 8 - GI Upset PENICILLINS 03/05/2023 4 - Hives Date Reviewed: 11/19/2023 Reviewed by: Clarissa Gipson LPN - Fully Assessed Reason for Visit: Athlete Foot [1035] New [10 (more content not included)... Normal [facility] Wilfrid 11-07-2023 CNPN Telephone (WSTR) FELICIANO AGRAWAL ([id number]) 1980 M Date Time Provider Department 11/07/23 ATIF JUARES [facility] During your visit today, we recorded the following information about you: Atif Juares PA 11/07/2023 11:57 AM Signed Please contact patient and let them know that his wound culture did reveal some bacteria again. I have sent in cephalexin to his pharmacy. He needs to take this medication and follow-up with podiatry. Kesha Sidhu 11/07/2023 12:50 PM Signed Talked to patient and he verbally understands there was bacteria in his culture and to follow up with procedure writer. Kesha Sidhu Allergies As of Date: 11/07/2023 Noted Allergy Reaction AMOXICILLIN 06/10/2017 5 - Intolerance CODEINE 02/15/2014 8 - GI Upset PENICILLINS 03/05/2023 4 - Hives Date Reviewed: 10/14/2023 Reviewed by: Elida Perry LPN - Fully Assessed Reason for Visit: Results [95] Order(s):cephALEXin (KEFLEX) 500 mg capsuleTake 1 capsule by mouth four times daily for 7 days.Disp: 28 capsuleRfl: 0 Prescriptions as of 11/07/2023 - cephALEXin (KEFLEX) 500 mg capsule Take 1 capsule by mouth four times daily for 7 days. - fluticasone (FLONASE) 50 mcg/actuation nasal spray Use 2 Sprays in each nostril once daily. Rinse mouth after use. Problem List As Of Date: 11/07/2023 (None) Prescriptions ordered this encounter Disp Refills Start End CEPHALEXIN 500 MG CAPSULE 28 c* 0 11/07/2023 11/14/2023 Route: ORAL Sig: Take 1 capsule by mouth four times daily for 7 days. Encounter Status:Closed by KESHA SIDHU on 11/07/23 Normal [facility] Bacteria Wnd Culton 11-03-19 24 Bacteria identified Cx Nom (Wound) ORGANISM ID: 1 Rare Streptococcus agalactiae (group b streptococcus) Susceptibility testing not performed on beta hemolytic streptococci due to predictable susceptibility to penicillin and other beta lactams. For testing, call Microbiology within 72 hours. ORGANISM ID: 2 Rare Staphylococcus aureus ORGANISM ID: 3 Few skin meme ORGANISM ID: 4 Rare Acinetobacter radioresistens No further workup GRAM STAIN: No organisms seen No Polymorphonuclear Leukocytes ORGANISM ID: 2 (STAPHYLOCOCCUS AUREUS) ------ ANTIBIOTIC INTERPRETATION ALFA STATUS REFERENCE RANGE ------ Oxacillin S 0.5 F Susceptible <=2 , Resistant >2 Oxacillin-susceptible staphylococci are susceptible to other penicilllinase-stable penicillins, beta-lactam/beta-lact amase inhibitor combinations, anti-staphylococcal cephems, and carbapenems. Erythromycin S <=0.25 F Susceptible <=0.5 , Intermediate >.5 , Resistant >4 Clindamycin S 0.25 F Susceptible <=0.5 , Intermediate >.5 , Resistant >2 Trimeth sulfameth S <=10 F Susceptible <=40 , Resistant >40 Vancomycin S 1 F Susceptible <=2 , Intermediate >2 , Resistant >8 Rifampin S <=0.5 F Susceptible <=1 , Intermediate >1 , Resistant >2 Rifampin should not be used alone for antimicrobial therapy. Tetracycline S <=1 F Susceptible <=4 , Intermediate >4 , Resistant >8 Doxycycline S <=0.5 F Susceptible <=4 , Intermediate >4 , Resistant >8 Abnormal [facility] Comment on above: Performed By: #### 6 [id number] #### [facility] CLIA [id number] [address] [place] [address] [place] CNOVon 11-03-2023 CNOV Office Visit (UCWSTR ) FELICIANO AGRAWAL ([id number]) 1980 M Date Time Provider Department 11/03/23 5:00 PM SHIRA LORA [facility] During your visit today, we recorded the following information about you: Temperature Pulse Respiration Blood pressure 98.2 degrees 67/minute 16/minute 122/80 Weight 86.7 kg Shira Lora APRN.WILD LIFE MANAGER 11/03/2023 5:23 PM Signed Subjective Patient came in with complaints of itching rash between toes. Patient was seen 2 weeks ago and prescribed clotrimazole and doxycycline. Patient was positive for bacterial infection as well. Patient says it still itching very badly and he cannot get into podiatry until 725. Patient denies any other symptoms. The history is provided by the patient. No english language arts teacher was used. Review of Systems Constitutional: Negative. Skin: Negative. Objective Physical Exam Constitutional: Appearance: Normal appearance. Pulmonary: Effort: Pulmonary effort is normal. Musculoskeletal: Feet: Feet: Comments: Spotted red rash located in the areas marked above does appear to be getting better from last visit. Neurological: Mental Status: He is alert. PAST MEDICAL HISTORY Diagnosis Date Back pain PAST SURGICAL HISTORY Procedure Laterality Date KNEE SURGERY HX Right meniscus repair TONSILLECTOMY HX ALLERGIES Amoxicillin, Codeine, and Penicillins MEDICATIONS fluticasone (FLONASE) 50 mcg/actuation nasal spray Use 2 Sprays in each nostril once daily. Rinse mouth after use. (Patient not taking: Reported on 10/14/2023) No family history on file. Social History Tobacco Use Smoking status: Every Day Smokeless tobacco: Never ASSESSMENT/PLAN: 1. Foot infection - ICD9: 686.9, ICD10: L08.9 Other wound culture was sent. Patient was instructed to continue his clotrimazole and call around to different procedure writer to see if he can get an earlier appointment. Patient was okay with this care plan. Patient's wound culture comes back please prescribe antibiotics accordingly. Shira Lora APRN.WILD LIFE MANAGER Allergies As of Date: 11/03/2023 Noted Allergy Reaction AMOXICILLIN 06/10/2017 5 - Intolerance CODEINE 02/15/2014 8 - GI Upset PENICILLINS 03/05/2023 4 - Hives Date Reviewed: 10/14/2023 Reviewed by: Elida Perry LPN - Fully Assessed Reason for Visit: bilateral foot infections/rash [Other] Cmt: X 2 months Primary Visit Diagnosis:Foot infection [L08.9] Order(s):ABSCESS AND WOUND CULTURE WITH GRAM STAIN [SQWCUL] Order #: [id number] FUTURE ABSCESS AND WOUND CULTURE WITH GRAM STAIN [SQWCUL] Order #: [id number]. #:[id number] Prescriptions as of 11/03/2023 - fluticasone (FLONASE) 50 mcg/actuation nasal spray Use 2 Sprays in each nostril once daily. Rinse mouth after use. Problem List As Of Date: 11/03/2023 (None) Encounter Status:Closed by SHIRA LORA on 11/03/23 [facility] 10-18-2023 [facility] Telephone (UCTR) FELICIANO AGRAWAL ([id number]) 1980 M Date Time Provider Department 10/18/23 DIONNA [facility] During your visit today, we recorded the following information about you: Dionna Obrien APRN.THOMAS 10/18/2023 8:49 AM Signed Bacterial infection noted on wound culture. Continue antibiotics as prescribed. Follow-up with PCP symptoms or not improving. Dionna Obrien APRN.Elida Tsang LPN 10/18/2023 12:38 PM Signed Patient notified.Elida Perry LPN Allergies As of Date: 10/18/2023 Noted Allergy Reaction AMOXICILLIN 06/10/2017 5 - Intolerance CODEINE 02/15/2014 8 - GI Upset PENICILLINS 03/05/2023 4 - Hives Date Reviewed: 10/14/2023 Reviewed by: Elida Perry LPN - Fully Assessed Reason for Visit: Results [95] Prescriptions as of 10/18/2023 - clotrimazole (LOTRIMIN) 1 % cream Apply to affected area two times a day for 14 days. - doxycycline (VIBRA-TABS) 100 mg tablet Take 1 tablet by mouth two times a day for 7 days. - fluticasone (FLONASE) 50 mcg/actuation nasal spray Use 2 Sprays in each nostril once daily. Rinse mouth after use. Problem List As Of Date: 10/18/2023 (None) Encounter Status:Closed by ELIDA PERRY on 10/18/23 Normal [facility] Bacteria Wnd Culton 10-14-19 Bacteria identified Cx Nom (Wound) ORGANISM ID: 1 Few Staphylococcus aureus ORGANISM ID: 2 Few Streptococcus agalactiae (group b streptococcus) Susceptibility testing not performed on beta hemolytic streptococci due to predictable susceptibility to penicillin and other beta lactams. For testing, call Microbiology within 72 hours. ORGANISM ID: 3 One colony Lactose positive gram negative bacilli No further workup ORGANISM ID: 4 Few skin meme GRAM STAIN: Few Gram positive cocci No Polymorphonuclear Leukocytes ORGANISM ID: 1 (STAPHYLOCOCCUS AUREUS) ------ ANTIBIOTIC INTERPRETATION ALFA STATUS REFERENCE RANGE ------ Oxacillin S 0.5 F Susceptible <=2 , Resistant >2 Oxacillin-susceptible staphylococci are susceptible to other penicilllinase-stable penicillins, beta-lactam/beta-lact amase inhibitor combinations, anti-staphylococcal cephems, and carbapenems. Erythromycin S <=0.25 F Susceptible <=0.5 , Intermediate >.5 , Resistant >4 Clindamycin S 0.25 F Susceptible <=0.5 , Intermediate >.5 , Resistant >2 Trimeth sulfameth S <=10 F Susceptible <=40 , Resistant >40 Vancomycin S 1 F Susceptible <=2 , Intermediate >2 , Resistant >8 Rifampin S <=0.5 F Susceptible <=1 , Intermediate >1 , Resistant >2 Rifampin should not be used alone for antimicrobial therapy. Tetracycline S <=1 F Susceptible <=4 , Intermediate >4 , Resistant >8 Doxycycline S <=0.5 F Susceptible <=4 , Intermediate >4 , Resistant >8 Abnormal [facility] Comment on above: Performed By: #### 6 [id number] ####[facility] [id number] [address] OF [place] CNOVon 10-14-2023 CNOV Office Visit (UCWSTR ) FELICIANO AGRAWAL ([id number]) 1980 Date Time Provider Department 10/14/23 7:00 PM SHIRA LORA WSTR During your visit today, we recorded the following information about you: Temperature Pulse Respiration Blood pressure 98.2 degrees 75/minute 16/minute 128/80 Weight 84.8 kg Shira Lora APRN.WILD LIFE MANAGER 10/14/2023 7:06 PM Signed Subjective Patient came in with complaints of rash between most of his toes. Patient says it started on the bottom and he has been self treating with [id number] fungal medications. Patient says he is even tried tea tree oil. Patient says it keeps getting worse. Patient says it does itch. The history is provided by the patient. No english language arts teacher was used. Rash Review of Systems Constitutional: Negative. Skin: Positive for itching and rash. Objective Physical Exam Constitutional: Appearance: Normal appearance. Pulmonary: Effort: Pulmonary effort is normal. Musculoskeletal: Feet: Feet: Comments: Patient has erythema drying cracking located in the areas marked above and purple. Blue area morfin raised flesh-colored mole that patient says is normal and he has had it for years. Neurological: Mental Status: He is alert. PAST MEDICAL HISTORY Diagnosis Date Back pain PAST SURGICAL HISTORY Procedure Laterality Date KNEE SURGERY HX Right meniscus repair TONSILLECTOMY HX ALLERGIES Amoxicillin, Codeine, and Penicillins MEDICATIONS clotrimazole (LOTRIMIN) 1 % cream Apply to affected area two times a day for 14 days. doxycycline (VIBRA-TABS) 100 mg tablet Take 1 tablet by mouth two times a day for 7 days. fluticasone (FLONASE) 50 mcg/actuation nasal spray Use 2 Sprays in each nostril once daily. Rinse mouth after use. (Patient not taking: Reported on 10/14/2023) No family history on file. Social History Tobacco Use Smoking status: Every Day Smokeless tobacco: Never ASSESSMENT/PLAN: 1. Rash - ICD9: 782.1, ICD10: R21 - CLOTRIMAZOLE 1 % TOPICAL CREAM - CONSULT TO PODIATRY - DOXYCYCLINE HYCLATE 100 MG TABLET Wound culture was performed. If culture comes back and requires antibiotics to be changed please change according to culture. Patient will make his own podiatry appointment before leaving today. Patient will also call around to dermatology for follow-up if podiatry is booked out too far. Patient was educated about proper use of medication and supportive therapies. Red flag symptoms were discussed. Patient was okay with this care plan. Shira Lora APRN.WILD LIFE MANAGER Allergies As of Date: 10/14/2023 Noted Allergy Reaction AMOXICILLIN 06/10/2017 5 - Intolerance CODEINE 02/15/2014 8 - GI Upset PENICILLINS 03/05/2023 4 - Hives Date Reviewed: 10/14/2023 Reviewed by: Elida Perry LPN - Fully Assessed Reason for Visit: Rash [1087] Cmt: Rash on feet x 3 weeks Primary Visit Diagnosis:Rash [R21] Order(s):clotrimazole (LOTRIMIN) 1 % creamApply to affected area two times a day for 14 days.Disp: 24 gRfl: 0 CONSULT TO PODIATRY [9034] Order #: [id number]: 1 FUTURE doxycycline (VIBRA-TABS) 100 mg tabletTake 1 tablet by mouth two times a day for 7 days.Disp: 14 tabletRfl: 0 ABSCESS AND WOUND CULTURE WITH GRAM STAIN [SQWCUL] Order #: [id number] FUTURE ABSCESS AND WOUND CULTURE WITH GRAM STAIN [SQWCUL] Order #: [id number]. #:[id number] Prescriptions as of 10/14/2023 - clotrimazole (LOTRIMIN) 1 % cream Apply to affected area two times a day for 14 days. - doxycycline (VIBRA-TABS) 100 mg tablet Take 1 tablet by mouth two times a day for 7 days. - fluticasone (FLONASE) 50 mcg/actuation nasal spray Use 2 Sprays in each nostril once daily. Rinse mouth after use. Problem List As Of Date: 10/14/2023 (None) Prescriptions ordered this encounter Disp Refills Start End CLOTRIMAZOLE 1 % TOPICAL CREAM 24 g 0 10/14/2023 10/28/2023 Route: TOPICAL Sig: Apply to affected area two times a day for 14 days. DOXYCYCLINE HYCLATE 100 MG TABLET 14 t* 0 10/14/2023 10/21/2023 Route: ORAL Sig: Take 1 tablet by mouth two times a day for 7 days. Encounter Status:Closed by SHIRA LORA on 10/14/23 Normal [facility] Pap Stain (control)on 2023 Pap Stain (control) Patient Age/Sex Location Account Attending Physician [facility] 43[id number]. Florida Boyd II, MD Specimen: [id number] Received: 08/24/23 Status: LILIANA Goodman Num: [id number] Spec Type: CYSPIN FL Subm Dr: Dr. Florida Boyd II, MD HEADER OPERATION: Post vasectomy PRE-OP DIAGNOSIS: Post vasectomy status TISSUE SUBMITTED: Seminal fluid -------- DIAGNOSIS CYTOLOGY Seminal fluid for cytology (cytospins): No spermatozoa identified. AM/ 08/25/23 CYTOLOGY STUDY Slides are reviewed. CYTOLOGY GROSS Received is 0.25 ml of thick cloudy fluid labeled with the patient's name and and designated per the requisition as Seminal fluid. Submitted for cytology preparation including cell block. 08/24/2023 TC:5 CPT: 11349 Signed (signature on file) Dr. Helder Patricio, DO 08/25/23 1303 -------- Normal [facility] Comment on above: Performed By: #### P PAPS #### [facility] [address] [place], [address] [id number] 08-21-2023 CYTOLOGY,SEMEN SEE PATHOLOGY REPORT Normal [facility] Comment on above: Result Comment: Spec imen submitted to Anatomical Pathology Department for testing. Performed By: #### L 350.1150 #### [facility] [address] [place], [place], [address] Spermatozoa [Presence] in Se men by Light microscopy --post vasectomyOrdered By: PURNIMA Boyd on 08-21-2023 Spermatozoa post vasectomy LM Ql (Lashanda) SEE PATHOLOGY REPORT [facility] Comment on above: Specimen submitted t o Anatomical Pathology Department for testing. Urgent Care Visit Reporton 0 06-30-2023 Urgent Care Visit Report [facility] [address], [address] [place] [address] OFFICE VISIT Date of Service: 06/30/23 MR#: [id number] Acct: [id number] Name: FELICIANO AGRAWAL Rep #: [id number] : 1980 Provider: BEBA Carroll Age/Sex: 43/M Location: [facility] Status: Signed Intake Vital Signs 07/05/21 11:03 Height 6 ft 1 in Intake Visit Reasons: DOT PHYSICAL/MCTV Allergies codeine Allergy (Verified 07/31/21 06:52) Nausea/Vom/Diarrhea Penicillins [PCN] Allergy (Verified 07/31/21 06:52) Hives PFSH Medical History Smoker Surgical History Hx of arthroscopy of right knee Hx of tonsillectomy Social History Smoking Status: Current every day smoker tobacco type: cigarettes HPI HPI Details: FELICIANO AGRAWAL, is a 43 M who presents to the office today for Office Procedures Physical Exam Coding PE Coding DOT PE: Yes Coding Level of Care Code No Charge Diagnoses Encounter for examination required by Department of Transportation (DOT) Z02.89 Assessment and Plan Assessment and Plan (1) Encounter for examination required by Department of Transportation (DOT): Status: Acute 06/30/23 0937 Date Feliciano YODER Cosigner Signature: Date (if applicable) CC: Normal [facility] Office Visiton 08-07-2016 Documentation of current medications (procedure) Done Invalid Interpretation Code [facility] Work Phone: Smoking cessation education (procedure) yes Invalid Interpretation Code [facility] Work Phone: Tobacco smoking status NHIS Never Invalid Interpretation Code [facility] Work Phone: Tobacco use CPHS Current every day smoker Invalid Interpretation Code [facility] Work Phone: Vital Signs Date Time Vital Sign Value Performing Clinician Facility 05-04-2024 07:09-0500 Body mass index (BMI) [Ratio] 27.63 kg/m2 Dionna Obrien APRN.WILD LIFE MANAGER Work Phone: [facility] 05-04-2024 07:09-0500 Body temperature 98.4 [degF] Dionna Obrien BACK SHOE CUTTER.WILD LIFE MANAGER Work Phone: [facility] 05-04-2024 07:09-0500 Body weight 95 kg Dionna Obrien APRN.WILD LIFE MANAGER Work Phone: [facility] 05-04-2024 07:09-0500 Diastolic blood pressure 74 mm[Hg] Dionna Obrien BACK SHOE CUTTER.WILD LIFE MANAGER Work Phone: [facility] 05-04-2024 07:09-0500 Heart rate 72 /min Dionna Obrien APRN.WILD LIFE MANAGER Work Phone: [facility] 05-04-2024 07:09-0500 Respiratory rate 16 /min Dionna Obrien APRN.WILD LIFE MANAGER Work Phone: [facility] 05-04-2024 07:09-0500 SaO2% (BldA) [Mass fraction] 97 % Dionna Obrien APRN.WILD LIFE MANAGER Work Phone: [facility] 05-04-2024 07:09-0500 Systolic blood pressure 130 mm[Hg] Dionna Obrien APRN.WILD LIFE MANAGER Work Phone: [facility] 11-03-2023 17:05-0400 Body mass index (BMI) [Ratio] 25.22 kg/m2 Shira Lora APRN.WILD LIFE MANAGER Work Phone: [facility] 11-03-2023 17:05-0400 Body temperature 98.2 [degF] Shira Lora APRN.WILD LIFE MANAGER Work Phone: [facility] 11-03-2023 17:05-0400 Body weight 86.7 kg Shira Lora APRN.WILD LIFE MANAGER Work Phone: [facility] 11-03-2023 17:05-0400 Diastolic blood pressure 80 mm[Hg] Shira Lora APRN.WILD LIFE MANAGER Work Phone: [facility] 11-03-2023 17:05-0400 Heart rate 67 /min Shira Lora APRN.WILD LIFE MANAGER Work Phone: [facility] 11-03-2023 17:05-0400 Respiratory rate 16 /min Shira Lora APRN.WILD LIFE MANAGER Work Phone: [facility] 11-03-2023 17:05-0400 SaO2% (BldA) [Mass fraction] 97 % Shira Lora APRN.WILD LIFE MANAGER Work Phone: [facility] 11-03-2023 17:05-0400 Systolic blood pressure 122 mm[Hg] Shira Lora APRN.WILD LIFE MANAGER Work Phone: [facility] 10-14-2023 18:55-0400 Body mass index (BMI) [Ratio] 24.67 kg/m2 Shira Lora APRN.WILD LIFE MANAGER Work Phone: [facility] 10-14-2023 18:55-0400 Body temperature 98.2 [degF] Shira Lora APRN.WILD LIFE MANAGER Work Phone: [facility] 10-14-2023 18:55-0400 Body weight 84.8 kg Shira Lora APRN.WILD LIFE MANAGER Work Phone: [facility] 10-14-2023 18:55-0400 Diastolic blood pressure 80 mm[Hg] Shira Lora APRN.WILD LIFE MANAGER Work Phone: [facility] 10-14-2023 18:55-0400 Heart rate 75 /min Shira Lora APRN.WILD LIFE MANAGER Work Phone: [facility] 10-14-2023 18:55-0400 Respiratory rate 16 /min Shira Lora APRN.WILD LIFE MANAGER Work Phone: [facility] 10-14-2023 18:55-0400 SaO2% (BldA) [Mass fraction] 96 % Shira Lora APRN.WILD LIFE MANAGER Work Phone: [facility] 10-14-2023 18:55-0400 Systolic blood pressure 128 mm[Hg] Shira Lora APRN.WILD LIFE MANAGER Work Phone: [facility] 06-17-2023 15:44-0500 Respiratory rate 16 /min Urology Room [facility] 03-29-2023 12:04-0500 Body temperature 97.5 [degF] Shira Lora APRN.WILD LIFE MANAGER Work Phone: [facility] 03-29-2023 12:04-0500 Body weight 84.82 kg Shira Lora APRN.WILD LIFE MANAGER Work Phone: [facility] 03-29-2023 12:04-0500 Diastolic blood pressure 86 mm[Hg] Shira Lora APRN.WILD LIFE MANAGER Work Phone: [facility] 03-29-2023 12:04-0500 Heart rate 52 /min Shira Lora APRN.WILD LIFE MANAGER Work Phone: [facility] 03-29-2023 12:04-0500 Respiratory rate 16 /min Shira Lora APRN.WILD LIFE MANAGER Work Phone: [facility] 03-29-2023 12:04-0500 SaO2% (BldA) [Mass fraction] 98 % Shira Lora APRN.WILD LIFE MANAGER Work Phone: [facility] 03-29-2023 12:04-0500 Systolic blood pressure 148 mm[Hg] Shira James BACK SHOE CUTTER.WILD LIFE MANAGER Work Phone: [facility] 03-05-2023 17:40-0500 Body temperature 98.1 [degF] Chiragdillon Mendoza BACK SHOE CUTTER.WILD LIFE MANAGER Work Phone: [facility] 03-05-2023 17:40-0500 Body weight 83.55 kg Chirag Reji BACK SHOE CUTTER.WILD LIFE MANAGER Work Phone: [facility] 03-05-2023 17:40-0500 Diastolic blood pressure 68 mm[Hg] Chirag Reji BACK SHOE CUTTER.WILD LIFE MANAGER Work Phone: [facility] 03-05-2023 17:40-0500 Heart rate 67 /min Chirag Mendoza BACK SHOE CUTTER.WILD LIFE MANAGER Work Phone: [facility] 03-05-2023 17:40-0500 Respiratory rate 19 /min Chirag Mendoza BACK SHOE CUTTER.WILD LIFE MANAGER Work Phone: [facility] 03-05-2023 17:40-0500 SaO2% (BldA) [Mass fraction] 98 % Chiragdillon Mendoza BACK SHOE CUTTER.WILD LIFE MANAGER Work Phone: [facility] 03-05-2023 17:40-0500 Systolic blood pressure 110 mm[Hg] Chirag Reji BACK SHOE CUTTER.WILD LIFE MANAGER Work Phone: [facility] 10-01-2022 17:27-0400 Body temperature 98.01 [degF] Campbell Garzon MD Work Phone: [facility] 10-01-2022 17:27-0400 Body weight 88.91 kg Campblel Garzon MD Work Phone: [facility] 10-01-2022 17:27-0400 Diastolic blood pressure 82 mm[Hg] Campbell Garzon MD Work Phone: [facility] 10-01-2022 17:27-0400 Heart rate 68 /min Campbell Garzon MD Work Phone: [facility] 10-01-2022 17:27-0400 Respiratory rate 16 /min Campbell Garzon MD Work Phone: [facility] 10-01-2022 17:27-0400 SaO2% (BldA) [Mass fraction] 97 % Campbell Garzon MD Work Phone: [facility] 10-01-2022 17:27-0400 Systolic blood pressure 122 mm[Hg] Campbell Garzon MD Work Phone: [facility] 06-26-2016 14:27-0500 BMI (Body Mass Index) 26.91 kg/m2 [facility] Work Phone: 06-26-2016 14:27-0500 Weight 92.53 kg [facility] Work Phone: 06-19-2016 10:25-0500 Body Temperature 98.5 [degF] [facility] Work Phone: 06-19-2016 10:25-0500 BP Diastolic 66 mm[Hg] [facility] Work Phone: 06-19-2016 10:25-0500 BP Systolic 144 mm[Hg] [facility] Work Phone: 06-19-2016 10:25-0500 BSA (Body Surface Area) 2.11 m2 [facility] Work Phone: 06-19-2016 10:25-0500 Height 185.42 cm [facility] Work Phone: 06-19-2016 10:25-0500 Pulse (Heart Rate) 50 /min [facility] Work Phone: 06-19-2016 10:25-0500 Pulse Oximetry 99 % [facility] Work Phone: 06-19-2016 10:25-0500 Respiratory Rate 16 /min Donna Minor [facility] Work Phone: Encounters Encounter Date Encounter Type Care Provider Facility Start: 05-04-2024 End: 05-04-2024 ambulatory [facility] Facility:[facility] Start: 05-04-2024 End: 05-04-2024 Office outpatient visit 15 minutes Dionna Obrien APRN.WILD LIFE MANAGER Work Phone: [facility] Comment on above: Sore throat (Primary Dx) Start: 11-19-2023 End: 11-19-2023 ambulatory [facility] Facility:[facility] Start: 11-19-2023 End: 11-19-2023 Patient encounter procedure Edgardo Augusteredlake Work Phone: Podiatry Comment on above: Tinea pedis of right foot (Primary Dx); Rash Start: 11-07-2023 Telephone encounter Atif YODER Work Phone: [facility] Comment on above: Results Start: 11-03-2023 End: 11-03-2023 ambulatory [facility] Facility:[facility] Start: 11-03-2023 End: 11-03-2023 Patient encounter procedure Shira Lora APRN.WILD LIFE MANAGER Work Phone: [facility] Comment on above: Foot infection (Prim milan Dx) Start: 10-18-2023 Telephone encounter Dionna gunn APRN.WILD LIFE MANAGER Work Phone: [facility] Comment on above: Results Start: 10-14-2023 End: 10-14-2023 ambulatory [facility] Facility:[facility] Start: 10-14-2023 End: 10-14-2023 Patient encounter procedure Shira Lora APRN.WILD LIFE MANAGER Work Phone: [facility] Comment on above: Rash (Primary Dx) Start: 08-21-2023 End: 08-21-2023 Patient encounter procedure No Primary Care Physician [facility] Work Phone: Start: 08-21-2023 End: 08-21-2023 ambulatory No Primary Care Physician [facility] Work Phone: Start: 06-30-2023 End: 06-30-2023 ambulatory Feliciano YODER Facility:[facility] Start: 06-30-2023 End: 06-30-2023 Patient encounter procedure No Primary Care Physician [facility] Work Phone: Start: 06-17-2023 End: 06-17-2023 ambulatory [facility] Amb[facility] Start: 06-17-2023 End: 06-17-2023 Patient encounter procedure Urology [id number] Procedure Room [facility] Comment on above: Vasectomy evaluation (Primary Dx) Start: 03-29-2023 End: 03-29-2023 Patient encounter procedure Shira Lora APRN.WILD LIFE MANAGER Work Phone: [facility] Comment on above: Skin infection (Prim milan Dx) Start: 03-16-2023 End: 03-17-2023 ambulatory [facility] Ambulatory Start: 03-16-2023 End: 03-16-2023 Office outpatient new 30 minutes Florida Boyd MD Work Phone: [facility] Comment on above: Vasectomy evaluation Start: 03-05-2023 End: 03-05-2023 Patient encounter procedure Chirag Mendoza APRN.WILD LIFE MANAGER Work Phone: [facility] Comment on above: ETD (Eustachian tube dysfunction), right (Primary Dx) Start: 10-01-2022 End: 10-01-2022 Patient encounter procedure Campbell Garzon MD Work Phone: [facility] Comment on above: Diastasis of rectus abdominis (Primary Dx) Procedures Date Procedure Procedure Detail Performing Clinician Start: 05-04-2024 STREP A MOLECULAR (POC) Campbell Garzon MD Work Phone: Plan of Treatment Date Care Activity Detail Author Start: 07-06-2031 DTaP/Tdap/Td Vaccine s (2 - Td or Tdap) DTaP/Tdap/Td Vaccines (2 - Td or Tdap) [facility] Start: 07-06-2031 Urine microalbumin profile DTaP,Tdap,Td Vaccine (2 - Td or Tdap) [facility] Start: 2030 Zoster Vaccines (1 o f 2) Zoster Vaccines (1 of 2) [facility] Start: 12-27-2023 Covid-19 Vaccine ( season) Covid-19 Vaccine () [facility] Start: 12-27-2023 Influenza vaccination [facility] Start: 11-19-2023 End: 11-19-2023 Patient encounter procedure 11/19/2023 8:15 AM EDT Office Visit Podiatry [address] [place] [address] Edgardo Hearn [address] [facility] [place] [address] Rash [R21] Podiatry Comment on above: Rash [R21] Start: 11-03-2023 End: 02-02-2024 Bacteria identified in Wound by Culture ABSCESS AND WOUND CULTURE WITH GRAM STAIN Microbiology Routine Foot infection Expected: 11/03/2023, Expires: 02/02/2024 Work Phone: Comment on above: Expected: 11/03/2023 , Expires: 02/02/2024 Start: 10-14-2023 End: 01-13-2024 Bacteria identified in Wound by Culture ABSCESS AND WOUND CULTURE WITH GRAM STAIN Microbiology Routine Rash Expected: 10/14/2023, Expires: 01/13/2024 Work Phone: Comment on above: Expected: 10/14/2023 , Expires: 01/13/2024 Start: 06-17-2023 End: 06-17-2023 Patient encounter procedure 06/17/2023 4:00 PM EST Procedure Visit [facility] [address] [place] [id number] [facility] Start: 04-27-2023 Behavioral Health Screening Behavioral Health Screening [facility] Start: 12-26-2022 Covid-19 Vaccine ( season) Covid-19 Vaccine ( season) [facility] Start: 12-26-2022 Influenza vaccination [facility] Start: 04-27-2022 DEPRESSION ASSESSMENT DEPRESSION ASS ESSMENT [facility] Start: 08-27-2016 End: 08-27-2016 Physical Therapy General Physical Therapy General Rehab Services, [address] [place] [address], [address] [facility] Work Phone: Start: 06-19-2016 End: 06-19-2016 Mri jnt of lwr extre w/o dye MRI Joint Lower Extremity [facility] Work Phone: Start: 2015 Lipid 1996 panel - Serum or Plasma Lipid Screening [facility] Start: 2015 Lipid panel Lipid Screening [facility] Start: 2015 LIPID SCREEN LIPID SCREEN [facility] Start: 1999 Hepatitis B Vaccine (1 of 3 - 19+ 3-dose series) Hepatitis B Vaccine (1 of 3 - 19+ 3-dose series) [facility] Start: 1999 Urine microalbumin profile DTAP,TDAP,TD (1 - Tdap) [facility] Start: 1998 Anxiety Screening Anxiety Screening [facility] Start: 1998 Depression Screening Depression Scre ening [facility] Start: 1998 HEPATITIS C SCREENING HEPATITIS C [facility] Start: 1998 Hepatitis C screening Hepatitis C [facility] Start: 1998 HIV SCREENING HIV SCREENING [facility] Start: 1998 HIV screening HIV Screening [facility] Start: 1986 PNEUMOCOCCAL (1 - PCV) PNEUMOCOCCAL (1 - PCV) [facility] Start: 1986 Pneumococcal vaccination [facility] Start: 1981 MMR Vaccines (1 of 1 - Standard series) MMR Vaccines (1 of 1 - Standard series) [facility] Start: 1981 Varicella vaccination Varicell a Vaccines (1 of 2 - 2-dose childhood series) [facility] Start: 1980 COVID-19 VACCINE (#1) COVID-19 VACCI NE (#1) [facility] Start: 1980 HEPATITIS B (1 of 3 - 3-dose series) HEPATITIS B (1 of 3 - 3-dose series) [facility] Start: 1980 Hepatitis B Vaccine (1 of 3 - 3-dose series) Hepatitis B Vaccine (1 of 3 - 3-dose series) [facility] Start: 1980 Hepatitis B Vaccines (1 of 3 - 3-dose series) Hepatitis B Vaccines (1 of 3 - 3-dose series) [facility] Start: 1980 HIV screening HIV Screening [facility] Start: 1980 Lipid panel Lipid Panel [facility] Start: 1980 Yearly Adult Physical Yearly Adult P hysical [facility] Immunizations Immunization Date Immunization Notes Care Provider Fa cility 07-05-2021 tetanus toxoid, redu marco a diphtheria toxoid, and acellular pertussis vaccine, adsorbed No Primary Care Physician [facility] Payers Date Payer Category Payer Self-pay [id number] 2022 Unknown [id number] 2022 Unknown [id number] 2016 Unknown [employer] [id number] 1980 Unknown [id number] 1980 Unknown [id number] Unknown [id number] Unknown [id number] Social History Date Type Detail Facility Start: 02-15-2014 Tobacco smoking status NHIS Smokes tobacco daily [facility] Start: 02-15-2014 End: 11-19-2023 Tobacco use and exposure Smokeless tobacco non-user [facility] Start: 10-01-2022 End: 05-04-2024 Alcohol intake Not Asked [facility] Start: 1980 Sex Assigned At Not on file [facility] Start: 03-05-2023 End: 11-19-2023 History of Social function [facility] Start: 03-05-2023 End: 11-19-2023 Tobacco use panel [facility] National Score (1-100), lower number is lower risk Not on file [facility] Start: 06-30-2023 Tobacco smoking status NDIS Tobacco smoking consumption unknown [facility] Start: 03-06-2023 End: 06-17-2023 Exposure to SARS-CoV-2 (event) Not sure [facility] Start: 06-17-2023 Tobacco smoking status NDIS Never smoked tobacco [facility] Work Phone: Start: 1980 Sex Assigned At Male [facility] Start: 11-19-2023 Tobacco smoking status NHIS Ex-smoker [facility] Work Phone: End: 08-26-2023 History of tobacco use Current smoker [facility] End: 08-26-2023 History of tobacco use Cigarette Smoker [facility] Clinical Notes 10-01-2022 to 05-04-2024 Patient InstructionsDionna Obrien APRN.CNP - 05/04/2024 7:11 AM ESTPatient InstructionsEdgardo Hearn - 11/19/2023 8:19 AM EDClarissa Carmona LPN - 11/19/2023 8:07 AM EDT Note Date & Type Note Facility 05-04-2024 Instructions Dionna Obrien APRN.CNP - 05/04/2024 7:19 AM EST [facility] PATIENT INFO PHARYNGITIS OVERVIEW A sore throat (pharyngitis) is a common problem, and usually is caused by a viral or bacterial infection. Sore throat usually resolves on its own without complications in adults, although it is important to know when to seek medical attention. Viruses can cause a sore throat and other upper respiratory infections, such as the common cold. Sore throat caused by a virus is not treated with antibiotics, but instead may be treated with rest, pain medication, and other therapies aimed at relieving symptoms. Strep throat is a particular kind of pharyngitis that is caused by a bacterium known as group A streptococcus (GAS). Strep throat is treated with a course of antibiotics. SORE THROAT SYMPTOMS Viral pharyngitis -- Most people with a sore throat have a virus. The most common viruses are those that cause upper respiratory infections, such as the common cold. Symptoms of a viral infection can include: A runny or congested nose Irritation or redness of the eyes Cough, hoarseness, or soreness in the roof of the mouth Some viruses cause a fever and can make you feel quite ill. Strep throat -- Approximately 10 percent of adults with a sore throat have strep throat. Signs and symptoms of strep throat include the following: Pain in the throat Fever (temperature greater than 100.4 F or 38 C) Enlarged lymph glands in the neck White patches of pus on the side or back of the throat No cough, runny nose, or irritation/redness of the eyes Other infections -- Many other less common but more serious infections can cause a sore throat, including mononucleosis (mono), influenza (the flu), N. gonococcus (gonorrhea), human immunodeficiency virus (HIV), and others. When to seek urgent help -- See your doctor or nurse immediately if you have a sore throat along with any of the following: Difficulty breathing Skin rash Drooling because you cannot swallow Swelling of the neck or tongue Stiff neck or difficulty opening the mouth SORE THROAT DIAGNOSIS Most people with a sore throat get better without treatment. There is no specific treatment for a sore throat caused by usual cold viruses. Is it strep or not? -- A combination of symptoms (fever, enlarged glands in the neck, white patches on your tonsils, and no cough) can help in determining if you have strep. If you have two or more symptoms, a rapid test or throat culture may be done. People with fewer than two symptoms usually do not need testing or treatment for strep throat. Rapid test -- The rapid test determines if there are streptococcus bacteria on a throat swab. The test can be done in a clinician's office and the results are available within a few minutes. The test is accurate in most cases, although a small percentage of tests are falsely negative (the bacteria are present but the test is negative). Throat culture -- A throat culture involves swabbing the throat, sending the swab to a laboratory, and waiting 24 to 48 hours for the results. Throat cultures are slightly more accurate than the rapid test. TREATMENT OF SORE THROAT Sore throat treatment -- Antibiotics do not help throat pain caused by a virus and are not recommended. Sore throat caused by viral infections usually lasts four to five days. During this time, treatments to reduce pain may be helpful. Several therapies can help to relieve throat pain. Pain medication -- You can treat your throat pain with a mild pain reliever such as acetaminophen (Tylenol ) or a non-steroidal anti-inflammatory agent such as ibuprofen or naproxen (Motrin or Aleve ). Oral rinses -- Salt-water gargles are an old stand-by for throat pain. It is not clear that salt water works to relieve pain, but it is unlikely to be harmful. Most recipes suggest 1/4 to 1/2 teaspoon of salt per one cup (8 ounces) of warm water. Sprays -- Sprays containing topical anesthetics (eg, benzocaine, phenol) are available to treat sore throat. However, such sprays are no more effective than sucking on hard candy. Lozenges -- A variety of lozenges (cough drops) are available to treat throat pain or relieve dryness. However, it is not clear that lozenges work any better than other forms of hard candy, which are generally less expensive. Other treatments -- Other treatments that may help with throat pain include sipping warm beverages (eg, honey or lemon tea, chicken soup), cold beverages, or eating cold or frozen desserts (eg, ice cream, popsicles). Alternative therapies -- Health food stores, vitamin outlets, and Internet Web sites offer alternative treatments for relief of sore throat pain. We do not recommend these type of treatments due to the risks of contamination with pesticides/herbicides, inaccurate labeling and dosing information, and a lack of studies showing that these treatments are safe and effective. Strep throat -- Although strep throat typically resolves on its own within two to five days, treatment with antibiotics is recommended for adults whose rapid test or throat culture is positive for strep throat. Penicillin, or an antibiotic related to penicillin, is the treatment of choice for strep throat. It is usually given in pill or liquid form two to four times per day for 10 days. A one time injection of penicillin is also available. People who are allergic to penicillin are given an alternate antibiotic. It is important to finish the entire course of treatment to completely eliminate the infection. If symptoms do not begin to improve or worsen by three days of antibiotic treatment, you should see your doctor or nurse again. Return to work/school -- If you have been diagnosed with strep throat, stay home from work or school until you have completed 24 hours of antibiotics. Within 24 hours of beginning antibiotic treatment, you will feel better and will be less contagious [1]. If you have a sore throat (not diagnosed as strep), you may participate in your usual activities as soon as you feel well. SORE THROAT PREVENTION Hand washing is an essential and highly effective way to prevent the spread of infection. Wet your hands with water and plain soap, and rub them together for 15 to 30 seconds. Pay special attention to the fingernails, between the fingers, and the wrists. Rinse your hands thoroughly, and dry them with a clean towel. Alcohol-based hand rubs are a good alternative for disinfecting hands if a sink is not available. Hand rubs should be spread over the entire surface of hands, fingers, and wrists until dry, and may be used several times. These rubs can be used repeatedly without skin irritation or loss of effectiveness. Hand rubs are available as a liquid or wipe in small, portable sizes that are easy to carry in a pocket or handbag. When a sink is available, visibly soiled hands should be washed with soap and water. Wash your hands after coughing, blowing the nose, or sneezing. While it is not always possible to avoid being near a person who is sick, avoiding touching your eyes, nose, or mouth to prevent the spread of infection. In addition, tissues should be used to cover the mouth when sneezing or coughing. These used tissues should be disposed of promptly. Sneezing/coughing into your sleeve (at the inner elbow) is another way to contain sprays of saliva and secretions and will not contaminate your hand documented in this encounter [facility] 05-04-2024 Note HNO ID: [id number] Author: DIONNA OBRIEN APRN.THOMAS Service: ? Author Type: Nurse Practitioner Type: Progress Notes Filed: 05/04/2024 07:30 Note Text: Subjective HPI Nontoxic-appearing 43-year-old male presents urgent care chief complaint pharyngitis. Duration of symptoms 1 day. Associated symptoms rhinorrhea sore throat body aches chills low-grade temperature. OTC medications adequate success. Most bothersome symptom today is pharyngitis. Able to swallow handle secretions decreased range of motion of neck was not noted. No trismus. No high fevers. Past medical history prescription medications allergies reviewed. .Patient presents with: Sore Throat: x 1 day PAST MEDICAL HISTORY Diagnosis Date Back pain PAST SURGICAL HISTORY Procedure Laterality Date KNEE SURGERY HX Right meniscus repair TONSILLECTOMY HX ALLERGIES Amoxicillin, Codeine, and Penicillins MEDICATIONS fluticasone (FLONASE) 50 mcg/actuation nasal spray Use 2 Sprays in each nostril once daily. Rinse mouth after use. (Patient not taking: Reported on 10/14/2023) History reviewed. No pertinent family history. Social History Tobacco Use Smoking status: Former Current packs/day: 0.00 Types: Cigarettes Quit date: 08/2023 Years since quittin.6 Smokeless tobacco: Never BP 130/74 Pulse 72 Temp 36.9 ?C (98.4 ?F) Resp 16 Wt 95 kg (209 lb 7 oz) SpO2 97% BMI 27.63 kg/m? Review of Systems Constitutional: Positive for chills and malaise/fatigue. Negative for fever. HENT: Positive for congestion and sore throat. Negative for ear discharge, ear pain and sinus pain. Eyes: Negative for blurred vision, pain, discharge and redness. Respiratory: Negative for cough, hemoptysis, sputum production, shortness of breath, wheezing and stridor. Cardiovascular: Negative for chest pain. Gastrointestinal: Negative for abdominal pain, diarrhea, nausea and vomiting. Musculoskeletal: Positive for myalgias. Skin: Negative for itching and rash. Neurological: Negative for dizziness and headaches. Objective Physical Exam Constitutional: General: He is not in acute distress. Appearance: He is not diaphoretic. HENT: Head: Normocephalic. Jaw: No trismus, tenderness, swelling or pain on movement. Nose: Congestion present. Mouth/Throat: Mouth: Mucous membranes are moist. Pharynx: Oropharynx is clear. Uvula midline. No pharyngeal swelling, oropharyngeal exudate, posterior oropharyngeal erythema or uvula swelling. Eyes: Conjunctiva/sclera: Conjunctivae normal. Pupils: Pupils are equal, round, and reactive to light. Cardiovascular: Rate and Rhythm: Normal rate and regular rhythm. Heart sounds: Normal heart sounds. Pulmonary: Effort: Pulmonary effort is normal. No tachypnea, accessory muscle usage or respiratory distress. Breath sounds: Normal breath sounds. No stridor. No wheezing, rhonchi or rales. Abdominal: General: There is no distension. Palpations: Abdomen is soft. Tenderness: There is no abdominal tenderness. There is no guarding or rebound. Musculoskeletal: Cervical back: Normal range of motion and neck supple. No edema, erythema, rigidity or tenderness. No pain with movement. Normal range of motion. Lymphadenopathy: Cervical: No cervical adenopathy. Skin: General: Skin is warm and dry. Neurological: Mental Status: He is alert and oriented to person, place, and time. ASSESSMENT/PLAN: 1. Sore throat - ICD9: 462, ICD10: J02.9 - STREP A MOLECULAR (POC) Strep test negative. No evidence of bacterial infection noted on today's assessment. We discussed other viral testing. Declined at this point. Patient was educated on supportive therapies. Patient will follow up with primary care provider as needed. Patient was instructed to immediately proceed to emergency room for any new, worsening, or symptoms lasting longer than anticipated. The patient's clinical presentation is otherwise unremarkable at this time. Based on exam and clinical finding, the patient is stable for discharge. Plan of care was discussed with patient. Patient verbalizes understanding and agrees to plan of care. This note was generated using [employer] software. It may contain errors in wording, punctuation, or spelling. Dionna Obrien APRN.[facility] 05-04-2024 History of Presen t illness Narrative Subjective HPI Nontoxic-appearing 43-year-old male presents urgent care chief complaint pharyngitis. Duration of symptoms 1 day. Associated symptoms rhinorrhea sore throat body aches chills low-grade temperature. OTC medications adequate success. Most bothersome symptom today is pharyngitis. Able to swallow handle secretions decreased range of motion of neck was not noted. No trismus. No high fevers. Past medical history prescription medications allergies reviewed. .Patient presents with: Sore Throat: x 1 day PAST MEDICAL HISTORY Diagnosis Date Back pain PAST SURGICAL HISTORY Procedure Laterality Date KNEE SURGERY HX Right meniscus repair TONSILLECTOMY HX ALLERGIES Amoxicillin, Codeine, and Penicillins MEDICATIONS fluticasone (FLONASE) 50 mcg/actuation nasal spray Use 2 Sprays in each nostril once daily. Rinse mouth after use. (Patient not taking: Reported on 10/14/2023) History reviewed. No pertinent family history. Social History Tobacco Use Smoking status: Former Current packs/day: 0.00 Types: Cigarettes Quit date: 08/2023 Years since quittin.6 Smokeless tobacco: Never BP 130/74 Pulse 72 Temp 36.9 C (98.4 F) Resp 16 Wt 95 kg (209 lb 7 oz) SpO2 97% BMI 27.63 kg/m Review of Systems Constitutional: Positive for chills and malaise/fatigue. Negative for fever. HENT: Positive for congestion and sore throat. Negative for ear discharge, ear pain and sinus pain. Eyes: Negative for blurred vision, pain, discharge and redness. Respiratory: Negative for cough, hemoptysis, sputum production, shortness of breath, wheezing and stridor. Cardiovascular: Negative for chest pain. Gastrointestinal: Negative for abdominal pain, diarrhea, nausea and vomiting. Musculoskeletal: Positive for myalgias. Skin: Negative for itching and rash. Neurological: Negative for dizziness and headaches. Objective Physical Exam Constitutional: General: He is not in acute distress. Appearance: He is not diaphoretic. HENT: Head: Normocephalic. Jaw: No trismus, tenderness, swelling or pain on movement. Nose: Congestion present. Mouth/Throat: Mouth: Mucous membranes are moist. Pharynx: Oropharynx is clear. Uvula midline. No pharyngeal swelling, oropharyngeal exudate, posterior oropharyngeal erythema or uvula swelling. Eyes: Conjunctiva/sclera: Conjunctivae normal. Pupils: Pupils are equal, round, and reactive to light. Cardiovascular: Rate and Rhythm: Normal rate and regular rhythm. Heart sounds: Normal heart sounds. Pulmonary: Effort: Pulmonary effort is normal. No tachypnea, accessory muscle usage or respiratory distress. Breath sounds: Normal breath sounds. No stridor. No wheezing, rhonchi or rales. Abdominal: General: There is no distension. Palpations: Abdomen is soft. Tenderness: There is no abdominal tenderness. There is no guarding or rebound. Musculoskeletal: Cervical back: Normal range of motion and neck supple. No edema, erythema, rigidity or tenderness. No pain with movement. Normal range of motion. Lymphadenopathy: Cervical: No cervical adenopathy. Skin: General: Skin is warm and dry. Neurological: Mental Status: He is alert and oriented to person, place, and time. ASSESSMENT/PLAN: 1. Sore throat - ICD9: 462, ICD10: J02.9 - STREP A MOLECULAR (POC) Strep test negative. No evidence of bacterial infection noted on today's assessment. We discussed other viral testing. Declined at this point. Patient was educated on supportive therapies. Patient will follow up with primary care provider as needed. Patient was instructed to immediately proceed to emergency room for any new, worsening, or symptoms lasting longer than anticipated. The patient's clinical presentation is otherwise unremarkable at this time. Based on exam and clinical finding, the patient is stable for discharge. Plan of care was discussed with patient. Patient verbalizes understanding and agrees to plan of care. This note was generated using [employer] software. It may contain errors in wording, punctuation, or spelling. Dionna Obrien APRN.WILD LIFE MANAGER documented in this encounter [facility] 11-19-2023 Instructions Edgardo Hearn - 11/19/2023 8:23 AM EDT Your foot is improving Continue with the fungal cream for 1-2 more weeks or until improve Make sure to dry between toes Use powder if necessary Follow-up if condition returns. documented in this encounter [facility] 11-19-2023 Note HNO ID: [id number] Author: EDGARDO HEARN, ? Service: ? Author Type: Physician Type: Progress Notes Filed: 11/19/2023 08:26 Note Text: Consultation requested by Dr. Lora for an opinion regarding athlete's foot. My final recommendations will be communicated back to the requesting physician by way of shared Medical record or letter to requesting physician via [place] mail. Initial Podiatric Office Visit: Chief Complaint: This 43 year old male who presents with chief complaint:athlete's foot HPI Patient presents to clinic for evaluation of b/l feet Had athlete's foot that began back in September. First started with over the counter creams and sprays but that did not improve He went to his primary care provider (via urgent care) and had wound culture performed. He was placed on oral steroid and topical cream He states the foot is much better now. PAIN EVALUATION No data found in the last 1 encounters. No results found for: HBA1C PCP: No primary care provider on file. PAST MEDICAL HISTORY Diagnosis Date Back pain Current Outpatient Medications Medication Sig fluticasone (FLONASE) 50 mcg/actuation nasal spray Use 2 Sprays in each nostril once daily. Rinse mouth after use. (Patient not taking: Reported on 10/14/2023) No current facility-administered medications for this visit. ALLERGIES Allergen Reactions Amoxicillin Intolerance Codeine GI Upset Penicillins Hives PAST SURGICAL HISTORY Procedure Laterality Date KNEE SURGERY HX Right meniscus repair TONSILLECTOMY HX No family history on file. Social History Tobacco Use Smoking status: Former Types: Cigarettes Quit date: 08/2023 Years since quittin.2 Smokeless tobacco: Never REVIEW OF SYSTEMS GENERAL: Negative for Malaise, significant weight loss, fever RESPIRATORY: Negative for cough, wheezing and shortness of breath CARDIOVASCULAR: Negative for chest pain, leg swelling and palpitations GI: Negative for abdominal discomfort, blood in stools or black stools and change in bowel habits : Negative for dysuria, frequency and incontinence MUSCULOSKELETAL: Negative for joint pain or swelling, back pain, and muscle pain. SKIN: Negative for lesions, rash, and itching. HEMATOLOGY/LYMPHOLOGY Negative for prolonged bleeding, bruising easily, and swollen nodes. ENDOCRINE: Negative for cold or heat intolerance, polyuria, polydipsia and goiter. NEURO: negative Physical Exam: Constitutional: Pt is a well developed 43 year old male who is alert, oriented and cooperative Eyes: Following during examination. No redness or drainage. Respiratory: RR normal and nonlabored. Even breathing. No evidence of distress or shortness of breath. Psychology: Patient is engaged during conversation. Normal affect and mood. Does not appear depressed or anxious during encounter. Vascular: Dorsalis pedis and posterior tibial pulses palpable as b/l Capillary Fill time < 5 seconds to digits 1-5 b/l Skin temperature warm to warm proximal to distal b/l Hair growth present to digits Neurological: intact light touch/epicritic sensation b/l intact protective sensation no significant neurological deficits Dermatological: Nails 1-5 b/l appear normal. Webspaces clean and dry 1-4 b/l. Skin appears well hydrated and supple. good color, texture, turgor. No open lesions present. No callosities present. Musculoskeletal/Orthopaedic: Patient has no pain to palpation of b/l feet Radiographs: n/a ASSESSMENT: (B35.3) Tinea pedis of right foot (primary encounter diagnosis) (R21) Rash PLAN: 1. History and physical examination performed. 2. Rash to right foot has resolved. 3. Continue with antifungal cream for 1-2 more weeks. 4. Make sure to dry between toes 5. Can use powder as needed 6. Discussed light color socks 7. If condition returns, call for immediate follow-up Edgardo Hearn DPM Podiatry [address] [facility] [address] Dept: [phone] Dept [facility] 11-19-2023 History of Presen t illness Narrative Consultation requested by Dr. Lora for an opinion regarding athlete's foot. My final recommendations will be communicated back to the requesting physician by way of shared Medical record or letter to requesting physician via [place] mail. Initial Podiatric Office Visit: Chief Complaint: This 43 year old male who presents with chief complaint:athlete's foot HPI Patient presents to clinic for evaluation of b/l feet Had athlete's foot that began back in September. First started with over the counter creams and sprays but that did not improve He went to his primary care provider (via urgent care) and had wound culture performed. He was placed on oral steroid and topical cream He states the foot is much better now. PAIN EVALUATION No data found in the last 1 encounters. No results found for: HBA1C PCP: No primary care provider on file. PAST MEDICAL HISTORY Diagnosis Date Back pain Current Outpatient Medications Medication Sig fluticasone (FLONASE) 50 mcg/actuation nasal spray Use 2 Sprays in each nostril once daily. Rinse mouth after use. (Patient not taking: Reported on 10/14/2023) No current facility-administered medications for this visit. ALLERGIES Allergen Reactions Amoxicillin Intolerance Codeine GI Upset Penicillins Hives PAST SURGICAL HISTORY Procedure Laterality Date KNEE SURGERY HX Right meniscus repair TONSILLECTOMY HX No family history on file. Social History Tobacco Use Smoking status: Former Types: Cigarettes Quit date: 08/2023 Years since quittin.2 Smokeless tobacco: Never REVIEW OF SYSTEMS GENERAL: Negative for Malaise, significant weight loss, fever RESPIRATORY: Negative for cough, wheezing and shortness of breath CARDIOVASCULAR: Negative for chest pain, leg swelling and palpitations GI: Negative for abdominal discomfort, blood in stools or black stools and change in bowel habits : Negative for dysuria, frequency and incontinence MUSCULOSKELETAL: Negative for joint pain or swelling, back pain, and muscle pain. SKIN: Negative for lesions, rash, and itching. HEMATOLOGY/LYMPHOLOGY Negative for prolonged bleeding, bruising easily, and swollen nodes. ENDOCRINE: Negative for cold or heat intolerance, polyuria, polydipsia and goiter. NEURO: negative Physical Exam: Constitutional: Pt is a well developed 43 year old male who is alert, oriented and cooperative Eyes: Following during examination. No redness or drainage. Respiratory: RR normal and nonlabored. Even breathing. No evidence of distress or shortness of breath. Psychology: Patient is engaged during conversation. Normal affect and mood. Does not appear depressed or anxious during encounter. Vascular: Dorsalis pedis and posterior tibial pulses palpable as b/l Capillary Fill time < 5 seconds to digits 1-5 b/l Skin temperature warm to warm proximal to distal b/l Hair growth present to digits Neurological: intact light touch/epicritic sensation b/l intact protective sensation no significant neurological deficits Dermatological: Nails 1-5 b/l appear normal. Webspaces clean and dry 1-4 b/l. Skin appears well hydrated and supple. good color, texture, turgor. No open lesions present. No callosities present. Musculoskeletal/Orthopaedic: Patient has no pain to palpation of b/l feet Radiographs: n/a ASSESSMENT: (B35.3) Tinea pedis of right foot (primary encounter diagnosis) (R21) Rash PLAN: 1. History and physical examination performed. 2. Rash to right foot has resolved. 3. Continue with antifungal cream for 1-2 more weeks. 4. Make sure to dry between toes 5. Can use powder as needed 6. Discussed light color socks 7. If condition returns, call for immediate follow-up Edgardo Hearn DPM Podiatry [address] [facility] [address] Dept: [phone] Dept AMB ROOMING INTAKE FLOWSHEET DATA Patient presents with: Left Foot - Athlete Foot, New Right Foot - Athlete Foot, New Clarissa Gipson LPN documented in this encounter [facility] 11-19-2023 Note HNO ID: [id number] Author: CLARISSA GIPSON LPN Service: ? Author Type: LICENSED NURSE Type: Progress Notes Filed: 11/19/2023 08:26 Note Text: AMB ROOMING INTAKE FLOWSHEET DATA Patient presents with: Left Foot - Athlete Foot, New Right Foot - Athlete Foot, New Clarissa Gipson LPN [facility] 11-07-2023 Telephone encounter Note Talked to patient and he verbally understands there was bacteria in his culture and to follow up with procedure writer. Kesha Sidhu [facility] 11-07-2023 Miscellaneous Notes Talked to patient and he verbally understands there was bacteria in his culture and to follow up with procedure writer. Kesha Sidhu Please contact patient and let them know that his wound culture did reveal some bacteria again. I have sent in cephalexin to his pharmacy. He needs to take this medication and follow-up with podiatry. documented in this encounter [facility] 11-07-2023 Telephone encounter Note Please contact patient and let them know that his wound culture did reveal some bacteria again. I have sent in cephalexin to his pharmacy. He needs to take this medication and follow-up with podiatry. [facility] 11-03-2023 Note HNO ID: [id number] Author: SHIRA LORA APRN.WILD LIFE MANAGER Service: ? Author Type: Nurse Practitioner Type: Progress Notes Filed: 11/03/2023 17:23 Note Text: Subjective Patient came in with complaints of itching rash between toes. Patient was seen 2 weeks ago and prescribed clotrimazole and doxycycline. Patient was positive for bacterial infection as well. Patient says it still itching very badly and he cannot get into podiatry until 725. Patient denies any other symptoms. The history is provided by the patient. No english language arts teacher was used. Review of Systems Constitutional: Negative. Skin: Negative. Objective Physical Exam Constitutional: Appearance: Normal appearance. Pulmonary: Effort: Pulmonary effort is normal. Musculoskeletal: Feet: Feet: Comments: Spotted red rash located in the areas marked above does appear to be getting better from last visit. Neurological: Mental Status: He is alert. PAST MEDICAL HISTORY Diagnosis Date Back pain PAST SURGICAL HISTORY Procedure Laterality Date KNEE SURGERY HX Right meniscus repair TONSILLECTOMY HX ALLERGIES Amoxicillin, Codeine, and Penicillins MEDICATIONS fluticasone (FLONASE) 50 mcg/actuation nasal spray Use 2 Sprays in each nostril once daily. Rinse mouth after use. (Patient not taking: Reported on 10/14/2023) No family history on file. Social History Tobacco Use Smoking status: Every Day Smokeless tobacco: Never ASSESSMENT/PLAN: 1. Foot infection - ICD9: 686.9, ICD10: L08.9 Other wound culture was sent. Patient was instructed to continue his clotrimazole and call around to different procedure writer to see if he can get an earlier appointment. Patient was okay with this care plan. Patient's wound culture comes back please prescribe antibiotics accordingly. Shira Lora APRN.CNP [facility] 11-03-2023 History of Presen t illness Narrative Images from the original note were not included. Subjective Patient came in with complaints of itching rash between toes. Patient was seen 2 weeks ago and prescribed clotrimazole and doxycycline. Patient was positive for bacterial infection as well. Patient says it still itching very badly and he cannot get into podiatry until 725. Patient denies any other symptoms. The history is provided by the patient. No english language arts teacher was used. Review of Systems Constitutional: Negative. Skin: Negative. Objective Physical Exam Constitutional: Appearance: Normal appearance. Pulmonary: Effort: Pulmonary effort is normal. Musculoskeletal: Feet: Feet: Comments: Spotted red rash located in the areas marked above does appear to be getting better from last visit. Neurological: Mental Status: He is alert. PAST MEDICAL HISTORY Diagnosis Date Back pain PAST SURGICAL HISTORY Procedure Laterality Date KNEE SURGERY HX Right meniscus repair TONSILLECTOMY HX ALLERGIES Amoxicillin, Codeine, and Penicillins MEDICATIONS fluticasone (FLONASE) 50 mcg/actuation nasal spray Use 2 Sprays in each nostril once daily. Rinse mouth after use. (Patient not taking: Reported on 10/14/2023) No family history on file. Social History Tobacco Use Smoking status: Every Day Smokeless tobacco: Never ASSESSMENT/PLAN: 1. Foot infection - ICD9: 686.9, ICD10: L08.9 Other wound culture was sent. Patient was instructed to continue his clotrimazole and call around to different procedure writer to see if he can get an earlier appointment. Patient was okay with this care plan. Patient's wound culture comes back please prescribe antibiotics accordingly. Shira Lora APRN.THOMAS documented in this encounter [facility] 10-18-2023 Telephone encounter Note Patient notified.Elida Perry LPN [facility] 10-18-2023 Miscellaneous Notes Patient notified.Elida Perry LPN Bacterial infection noted on wound culture. Continue antibiotics as prescribed. Follow-up with PCP symptoms or not improving. Dionna Obrien APRN.THOMAS documented in this encounter [facility] 10-18-2023 Telephone encounter Note Bacterial infection noted on wound culture. Continue antibiotics as prescribed. Follow-up with PCP symptoms or not improving. Dionna Obrien APRN.WILD LIFE MANAGER [facility] Work Phone: 10-14-2023 Note HNO ID: [id number] Author: SHIRA LORA APRN.THOMAS Service: ? Author Type: Nurse Practitioner Type: Progress Notes Filed: 10/14/2023 19:06 Note Text: Subjective Patient came in with complaints of rash between most of his toes. Patient says it started on the bottom and he has been self treating with [id number] fungal medications. Patient says he is even tried tea tree oil. Patient says it keeps getting worse. Patient says it does itch. The history is provided by the patient. No english language arts teacher was used. Rash Review of Systems Constitutional: Negative. Skin: Positive for itching and rash. Objective Physical Exam Constitutional: Appearance: Normal appearance. Pulmonary: Effort: Pulmonary effort is normal. Musculoskeletal: Feet: Feet: Comments: Patient has erythema drying cracking located in the areas marked above and purple. Blue area morfin raised flesh-colored mole that patient says is normal and he has had it for years. Neurological: Mental Status: He is alert. PAST MEDICAL HISTORY Diagnosis Date Back pain PAST SURGICAL HISTORY Procedure Laterality Date KNEE SURGERY HX Right meniscus repair TONSILLECTOMY HX ALLERGIES Amoxicillin, Codeine, and Penicillins MEDICATIONS clotrimazole (LOTRIMIN) 1 % cream Apply to affected area two times a day for 14 days. doxycycline (VIBRA-TABS) 100 mg tablet Take 1 tablet by mouth two times a day for 7 days. fluticasone (FLONASE) 50 mcg/actuation nasal spray Use 2 Sprays in each nostril once daily. Rinse mouth after use. (Patient not taking: Reported on 10/14/2023) No family history on file. Social History Tobacco Use Smoking status: Every Day Smokeless tobacco: Never ASSESSMENT/PLAN: 1. Rash - ICD9: 782.1, ICD10: R21 - CLOTRIMAZOLE 1 % TOPICAL CREAM - CONSULT TO PODIATRY - DOXYCYCLINE HYCLATE 100 MG TABLET Wound culture was performed. If culture comes back and requires antibiotics to be changed please change according to culture. Patient will make his own podiatry appointment before leaving today. Patient will also call around to dermatology for follow-up if podiatry is booked out too far. Patient was educated about proper use of medication and supportive therapies. Red flag symptoms were discussed. Patient was okay with this care plan. Shira Lora APRN.[facility] 10-14-2023 History of Presen t illness Narrative Images from the original note were not included. Subjective Patient came in with complaints of rash between most of his toes. Patient says it started on the bottom and he has been self treating with nkcp-mac-avsbqhf fungal medications. Patient says he is even tried tea tree oil. Patient says it keeps getting worse. Patient says it does itch. The history is provided by the patient. No english language arts teacher was used. Rash Review of Systems Constitutional: Negative. Skin: Positive for itching and rash. Objective Physical Exam Constitutional: Appearance: Normal appearance. Pulmonary: Effort: Pulmonary effort is normal. Musculoskeletal: Feet: Feet: Comments: Patient has erythema drying cracking located in the areas marked above and purple. Blue area morfin raised flesh-colored mole that patient says is normal and he has had it for years. Neurological: Mental Status: He is alert. PAST MEDICAL HISTORY Diagnosis Date Back pain PAST SURGICAL HISTORY Procedure Laterality Date KNEE SURGERY HX Right meniscus repair TONSILLECTOMY HX ALLERGIES Amoxicillin, Codeine, and Penicillins MEDICATIONS clotrimazole (LOTRIMIN) 1 % cream Apply to affected area two times a day for 14 days. doxycycline (VIBRA-TABS) 100 mg tablet Take 1 tablet by mouth two times a day for 7 days. fluticasone (FLONASE) 50 mcg/actuation nasal spray Use 2 Sprays in each nostril once daily. Rinse mouth after use. (Patient not taking: Reported on 10/14/2023) No family history on file. Social History Tobacco Use Smoking status: Every Day Smokeless tobacco: Never ASSESSMENT/PLAN: 1. Rash - ICD9: 782.1, ICD10: R21 - CLOTRIMAZOLE 1 % TOPICAL CREAM - CONSULT TO PODIATRY - DOXYCYCLINE HYCLATE 100 MG TABLET Wound culture was performed. If culture comes back and requires antibiotics to be changed please change according to culture. Patient will make his own podiatry appointment before leaving today. Patient will also call around to dermatology for follow-up if podiatry is booked out too far. Patient was educated about proper use of medication and supportive therapies. Red flag symptoms were discussed. Patient was okay with this care plan. Shira Lora APRN.THOMAS documented in this encounter [facility] 06-17-2023 History of Presen t illness Narrative Patient ID: Feliciano Agrawal is a 43 y.o. male. Procedures The patient was prepped and draped in the standard surgical fashion. 1% Lidocaine was injected into the scrotum. A small scrotal excision was made and the vas deferens brought through the incision. We then dissected the vas deferens free of its surroundings attachments and three clips were placed on the vas deferens. A section of the vas deferens was then excised. We then assured that adequate hemostasis was obtained. I closed the excision with a single chromic suture. The identical procedure was performed on the opposite side. The patient tolerated the procedure well and there were no complications. The patient was instructed on post-operative care as well as the importance of dropping off a semen analysis. The post-operative instructions were given tothe patient in writing as well. documented in this encounter [facility] Work Phone: 03-29-2023 History of Presen t illness Narrative Images from the original note were not included. Subjective Patient came in with complaints of right ear discomfort over the last couple days. Patient says it seems to be swollen as well as a lymph node. Patient denies any burning tingling pain patient denies any difficulty chewing or eating. Patient says he notices the pain is sometimes more when he swallows. Patient denies any other symptoms at this time. The history is provided by the patient. No english language arts teacher was used. Ear Pain Review of Systems Constitutional: Negative. Objective Physical Exam Constitutional: Appearance: Normal appearance. HENT: Head: Comments: Green area above morfin where patient has a small scabbed wound and mild swelling and erythema around the wound. Blue area morfin palpable lymph node that is uncomfortable when palpated no significant pain burning or fire associated. Pulmonary: Effort: Pulmonary effort is normal. Neurological: Mental Status: He is alert. PAST MEDICAL HISTORY Diagnosis Date Back pain PAST SURGICAL HISTORY Procedure Laterality Date KNEE SURGERY HX Right meniscus repair TONSILLECTOMY HX ALLERGIES Amoxicillin, Codeine, and Penicillins MEDICATIONS fluticasone (FLONASE) 50 mcg/actuation nasal spray Use 2 Sprays in each nostril once daily. Rinse mouth after use. doxycycline monohydrate 100 mg tablet Take 1 tablet by mouth two times a day for 7 days. No family history on file. Social History Tobacco Use Smoking status: Every Day Smokeless tobacco: Never ASSESSMENT/PLAN: 1. Skin infection - ICD9: 686.9, ICD10: L08.9 - DOXYCYCLINE MONOHYDRATE 100 MG TABLET Patient was educated about proper use of medication and supportive therapies. Patient will follow-up if signs and symptoms seem to be getting worse not better. Red flag symptoms were discussed with patient. Patient was okay with this care plan. Shira Lora APRN.THOMAS documented in this encounter [facility] 03-16-2023 History of Presen t illness Narrative Subjective Patient ID: Feliciano Agrawal is a 42 y.o. male. HPI Patient is here for a vas consult. Patient is with 1 child. No hematuria, No dysuria. Review of Systems Constitutional: Negative for chills and fever. HENT: Negative. Eyes: Negative. Respiratory: Negative for cough and shortness of breath. Cardiovascular: Negative for chest pain and leg swelling. Gastrointestinal: Negative for nausea. Endocrine: Negative. Genitourinary: Negative for difficulty urinating. Negative except for documented in HPI Allergic/Immunologic: Negative. Neurological: Alert & oriented X 3 Hematological: Denies blood thinners Psychiatric/Behavioral: Negative. Objective Physical Exam No PE done given the virtual nature of visit. Assessment/Plan Diagnoses and all orders for this visit: Vasectomy evaluation Pros/cons of vasectomy reviewed. Questions answered. Valium Rx given. Observe mild LUTS. F/U vas in office documented in this encounter [facility] Work Phone: 03-05-2023 History of Presen t illness Narrative Subjective HPI HPI Feliciano Agrawal is a 42 year old male who presents today for CC of sinus congestion, cough, right ear pain. This started 3 days ago. Has tried otc medication for relief. Symptoms are worsened by nothing. Risk factors smoker, hx of OM. .Patient presents with: Ear Problem: Possible ear infection, pressure, congestion x 3 days PAST MEDICAL HISTORY Diagnosis Date Back pain PAST SURGICAL HISTORY Procedure Laterality Date KNEE SURGERY HX Right meniscus repair TONSILLECTOMY HX ALLERGIES Amoxicillin, Codeine, and Penicillins MEDICATIONS doxycycline (VIBRA-TABS) 100 mg tablet Take 1 tablet by mouth two times a day for 7 days. predniSONE (DELTASONE) 10 mg tablet Take 4 tabs daily x 3 days, then 3 tabs x 3 days, 2 tabs x 3 days, then 1 tab x3 days with food. fluticasone (FLONASE) 50 mcg/actuation nasal spray Use 2 Sprays in each nostril once daily. Rinse mouth after use. No family history on file. Social History Tobacco Use Smoking status: Every Day Smokeless tobacco: Never Review of Systems Constitutional: Negative for fever. HENT: Positive for congestion, ear pain and sore throat. Negative for ear discharge and nosebleeds. Respiratory: Positive for cough. Negative for shortness of breath and wheezing. Cardiovascular: Negative for chest pain. Musculoskeletal: Negative for neck pain. Skin: Negative for itching and rash. Objective Blood pressure 110/68, pulse 67, temperature 36.7 C (98.1 F), resp. rate 19, weight 83.6 kg (184 lb 3.2 oz), SpO2 98 %. Physical Exam Constitutional: General: He is not in acute distress. Appearance: He is not toxic-appearing or diaphoretic. HENT: Head: Normocephalic and atraumatic. Right Ear: Hearing, ear canal and external ear normal. No drainage, swelling or tenderness. A middle ear effusion is present. Tympanic membrane is bulging. Tympanic membrane is not perforated or erythematous. Left Ear: Hearing, tympanic membrane, ear canal and external ear normal. Nose: Nose normal. Mouth/Throat: Lips: [place]. Mouth: Mucous membranes are moist. Cardiovascular: Rate and Rhythm: Normal rate and regular rhythm. Heart sounds: Normal heart sounds, S1 normal and S2 normal. Pulmonary: Effort: Pulmonary effort is normal. No accessory muscle usage or respiratory distress. Breath sounds: Normal breath sounds. Lymphadenopathy: Cervical: No cervical adenopathy. Right cervical: No superficial cervical adenopathy. Left cervical: No superficial cervical adenopathy. Neurological: Mental Status: He is alert and oriented to person, place, and time. Gait: Gait is intact. ASSESSMENT/PLAN: 1. ETD (Eustachian tube dysfunction), right - ICD9: 381.81, ICD10: H69.91 Start prednisone and flonase If s/s worsen fill atb rx and take F/u for continued s/s - DOXYCYCLINE HYCLATE 100 MG TABLET - PREDNISONE 10 MG TABLET - FLUTICASONE PROPIONATE 50 MCG/ACTUATION NASAL Chirag Mendoza APRN.WILD LIFE MANAGER documented in this encounter [facility] 10-01-2022 History of Presen t illness Narrative Patient presents with: Mass: mid abdominal area x 3 days HPI: Noticed a bulge in his abdomen when he works abs this week. It is midline and does not hurt. No masses requiring reduction or unable to reduce. He did feel his pulse in it. Denies nausea, vomiting, or constipation. He has lost about 20#. He previously quit smoking and has resumed. MEDICATIONS: No prescriptions on file. ALLERGIES: ALLERGIES Allergen Reactions Amoxicillin Intolerance Codeine GI Upset VITALS: BP 122/82 Pulse 68 Temp 36.7 C (98 F) Resp 16 Wt 88.9 kg (196 lb) SpO2 97% BMI 25.86 kg/m PHYSICAL EXAM: GEN: pleasant, no acute distress, alert HEENT: PERRL, EOMI, MMM NECK: supple, no lymphadenopathy, no thyromegaly HEART: regular rate, regular rhythm, no murmurs LUNGS: clear to auscultation, no wheezes or crackles, no increased WOB ABD: soft, non-distended, no masses palpated, non-tender. Bulge midline between the rectus muscles with flexing. No pulsatile mass. EXT: no clubbing, no cyanosis, no edema ASSESSMENT/PLAN: 1. Diastasis of rectus abdominis - ICD9: 728.84, ICD10: M62.08 Reviewed benign condition. No palpable hernia. Keeping weight down will help reduce progression of cosmetic bulge. Encouraged tobacco cessation. Campbell Garzon MD documented in this encounter [facility] Evaluation note Diagnosis Diastasis of rectus abdominis- Primary [facility] Diagnosis ETD (Eustachian tube dysfunction), right- Primary [facility] Vasectomy evaluation Other general counseling and advice for contraceptive management documented in this encounter [facility] Work Phone: Evaluation note* Diagnosis Skin infection- Primary Unspecified local infection of skin and subcutaneous tissue [facility] Diagnosis Vasectomy evaluation- Primary Other general counseling and advice for contraceptive management documented in this encounter [facility] Work Phone: Evaluation note* Diagnosis Onset Date Resolution Status 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 [facility] Work Phone: Evaluation note* Diagnosis Rash- Primary Rash and other nonspecific skin eruption [facility] Diagnosis Foot infection- Primary Unspecified local infection of skin and subcutaneous tissue [facility] Diagnosis Tinea pedis of right foot- Primary Dermatophytosis of foot Rash Rash and other nonspecific skin eruption [facility] Diagnosis Sore throat- Primary Acute pharyngitis documented in this encounter [facility] Summary Purpose Family History No Family History Records FoundNo Family History Records FoundNo Family History Records Found Advance Directives No Advanced Directives Records Found Advance Directive Response Recorded Date/ Time Living Will No July 05, 2021 1:43pm Power of Orthopedics Pediatric Physician No July 05 1:43pm Chief Complaint and Reason for Visit Chief Complaint 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 Reason for Visit Encounter for examin ation required by Department of Transportation (DOT) Reason for Referral Specialty Diagnoses / Procedures Referred By Katy walter Referred To Contact Podiatry Diagnoses Rash Procedures CONSULT TO PODIATRY OFFICE/OUTPATIENT [facility] MINUTES Shira Lora APRN.WILD LIFE MANAGER [address] [place] [address] Referral ID Status Reason Start Date Expiration Date Visits Requested Visits Authorized [id number] Authorized PCP Requested Referral 10/14/2023 10/13/2024 1 1 Additional Source Comments Source Comments (unrecognize d section and content) In the event this informatio n is protected by the Federal Confidentiality of Alcohol and Drug Abuse Patient Records regulations: The Federal rules restrict any use of the information to criminally investigate or prosecute any alcohol or drug abuse patient.[facility] HospitalIn the event this information is protected by the Federal Confidentiality of Alcohol and Drug Abuse Patient Records regulations: The Federal rules restrict any use of the information to criminally investigate or prosecute any alcohol or drug abuse patient.[facility] HospitalIn the event this information is protected by the Federal Confidentiality of Alcohol and Drug Abuse Patient Records regulations: The Federal rules restrict any use of the information to criminally investigate or prosecute any alcohol or drug abuse patient.[facility] HospitalIn the event this information is protected by the Federal Confidentiality of Alcohol and Drug Abuse Patient Records regulations: The Federal rules restrict any use of the information to criminally investigate or prosecute any alcohol or drug abuse patient.[facility] HospitalIn the event this information is protected by the Federal Confidentiality of Alcohol and Drug Abuse Patient Records regulations: The Federal rules restrict any use of the information to criminally investigate or prosecute any alcohol or drug abuse patient.[facility] HospitalIn the event this information is protected by the Federal Confidentiality of Alcohol and Drug Abuse Patient Records regulations: The Federal rules restrict any use of the information to criminally investigate or prosecute any alcohol or drug abuse patient.[facility] HospitalIn the event this information is protected by the Federal Confidentiality of Alcohol and Drug Abuse Patient Records regulations: The Federal rules restrict any use of the information to criminally investigate or prosecute any alcohol or drug abuse patient.[facility] HospitalIn the event this information is protected by the Federal Confidentiality of Alcohol and Drug Abuse Patient Records regulations: The Federal rules restrict any use of the information to criminally investigate or prosecute any alcohol or drug abuse patient.[facility] HospitalIn the event this information is protected by the Federal Confidentiality of Alcohol and Drug Abuse Patient Records regulations: The Federal rules restrict any use of the information to criminally investigate or prosecute any alcohol or drug abuse patient.[facility] Reason for Visit (unrecogniz ed section and content) Reason Comments Mass mid abdominal area x 3 days Reason Comments Ear Problem Possible ear infecti on, pressure, congestion x 3 days Reason Comments Ear Pain Right ear pain and s wollen lymph nodes Reason Comments Sterilization Reason Comments Rash Rash on feet x 3 wee ks Reason Comments Results Reason Comments bilateral foot infections/rash X 2 month s Reason Comments Athlete Foot New Specialty Diagnoses / Procedures Referred By Contac t Referred To Contact Podiatry Diagnoses Rash Procedures CONSULT TO PODIATRY OFFICE/OUTPATIENT [facility] 60 MINUTES Shira Lora, BACK SHOE CUTTER.[employer] [address] [place] [address] Referral ID Status Reason Start Date Expiration Date V isits Requested Visits Authorized [id number] Closed PCP Requested Referral 10/14/2023 10/13/2024 1 1 Reason Comments Sore Throat x 1 day Care Teams (unrecognized sec tion and content) Mechanist Relationship Specialty Start Date End Date Generic Provider, No Assigned MD [address] [place] [address] PCP - General Family Medicine 03/16/23 Florida Boyd MD [address] [place] [address] Surgeon Urology 03/16/23 Mechanist Relationship Specialty Start Date End Date Generic Provider, No Assigned MD [address] [place] [address] PCP - General Family Medicine 03/16/23 Florida Boyd MD [address] [place] [address] Surgeon Urology 03/16/23 Team Status: Active Member Role Status Dates No Primary Care Physician Family Provider Active No Primary Care Physician Primary Care Provider Active Team Status: Inactive Member Role Status Dates No Primary Care Physician Primary Care Provider, Refer ring Provider Active Feliciano Hill PA, PA Attending Provider Active Team Status: Inactive Member Role Status Dates No Primary Care Physician Primary Care Provider Active Dr. Florida Boyd II, MD Attending Provider, Referring Pro vider Active (unrecognized sect ion and content) No Status Records FoundNo Status Records FoundNo Status Records Found INFORMATION SOURCE (unrecogn ized section and content) DATE CREATED AUTHOR 06/25/2023 [facility] DATE CREATED AUTHOR AUTHOR'S ORGANIZ ATION 08/29/2023 [facility] DATE CREATED AUTHOR AUTHOR'S ORGANIZ ATION 05/09/2024 [facility] Goals (unrecognized section and content) Goals may be documented in a n alternate section FOR RECORDS PERTAINING TO PATIENTS WHO ARE OR HAVE BEEN ENROLLED IN A CHEMICAL DEPENDENCY/SUBSTANCEABUSE PROGRAM, SOME INFORMATION MAY BE OMITTED. This clinical summary was aggregated from multiple sources. Caution should be exercised in using it in the provision of clinical care. This summary normalizes information from multiple sources, and as a consequence, information in this document may materially change the coding, format and clinical context of patient data. In addition, data may be omitted in some cases. CLINICAL DECISIONS SHOULD BE BASED ON THE PRIMARY CLINICAL RECORDS. [facility] [employer] [employer] [facility]. provides no warranty or guarantee of the accuracy or completeness of information in this document.
[2025-03-19 22:46] VITALS: BP 128/76; PULSE 52; RESP 16; O2SAT 96
[2025-03-19 22:49] LABS: Anion Gap 12 (5-15); BUN 12 mg/dL (4-19); BUN/Creat Ratio 12.0 RATIO (10-20); Calcium,Total 9.3 mg/dL (7.6-11.0); Carbon Dioxide 25.0 mmol/L (21.0-32.0); Chloride 100 mmol/L (98-108); Estimated Creatinine Clearance 108.71 ml/min (50-250); Glucose 109 mg/dL (70-99); Potassium 3.8 mmol/L (3.3-5.1); Troponin T High Sensitivity 8 ng/L (<=22)
--- NOTE | 2025-03-19 23:08 | ED.VIS.CHEST ---
HPI <Dr. Jaylen Hernández MD - Last Filed: 03/20/25 10:21> History of Present Illness Chief Complaint: Chest Pain Detail of Chief Complaint: Central burning pressure sensation that started this evening at rest Informant: patient and spouse/S.O. Onset/Context/Timing Onset: Today and Hours Activity at onset: sudden Timing: Continuous Quality: Positive for Burning and Pressure Location: Substernal Current Severity: Mild Maximum Severity: Moderate Worsened By: Nothing Relieved By: Nothing Associated Symptoms: Positive for - (Patient denies radiation to the jaw, neck, back, shoulder or extremities); Negative for Nausea, Vomiting, Diaphoresis, Dyspnea, Cough, Fever, Lightheadedness, Acid Reflux or Palpitations Narrative Narrative: Patient is a 44-year-old male. He presents with central pressure burning sensation. He denies history of reflux, hiatal hernia or peptic ulcer disease. He denies black or maroon-colored stool. This started at rest. It is not positional. Nothing makes it better or worse. He has never had anything like this before. Father of heart failure at the age of 53-54. Mother had a cardiac event in her 70s. Patient is a former smoker. He smoked 1 pack/day for 20 years. He has not smoked for the past couple of years. He denies history of VTE. He has no risk factors for VTE. He denies leg pain, swelling discoloration. Patient stated at 1 point he had to slow burn on left side of his chest that went to inferiorly. He presently does not have that sensation. There is no history of trauma. Did not note any skin lesions. Prior Similar Symptoms: No Recent Illness/Hospitalization: No CVD Risk Factors: Positive for Smoking; Negative for Hypertension, Diabetes, Hypercholesterolemia or Family History 1' </=55 PE Risk Factors: Negative for Recent Travel/Surgery, Recent Immobilization, Prior DVT or PE, Cancer or OCP + Smoking + >/=35 TAD Risk Factors: Negative for Marfan's Syndrome, Hypertension or Family History PFSH <Dr. Jaylen Hernández MD - Last Filed: 03/20/25 10:21> PFS Medical History Smoker Home Medications ?Medication ?Instructions ?Recorded ?Last Taken ?Type famotidine 40 mg tablet (Pepcid) 40 mg PO DAILY #30 tabs 03/20/25 Unknown Rx Allergy/AdvReac Type Severity Reaction Status Date / Time codeine Allergy Nausea/Vom/ Verified 03/19/25 21:49 Diarrhea Penicillins (PCN) Allergy Hives Verified 03/19/25 21:49 Surgical History Hx of arthroscopy of right knee Hx of tonsillectomy Social History Smoking Status: Current every day smoker tobacco type: cigarettes ROS <Dr. Jaylen Hernández MD - Last Filed: 03/20/25 10:21> ROS ED Constitutional Constitutional ED: Denies chills, fever(s), subjective, sweats or weight loss Eyes Eyes: Reports none ENT ENT ED: Denies rhinorrhea or sore throat Cardiovascular Cardiovascular: Reports as per HPI; Denies orthopnea or paroxysmal nocturnal dyspnea Respiratory/Chest Respiratory/Chest: Denies cough, dyspnea, dyspnea on exertion, orthopnea or paroxysmal nocturnal dyspnea Gastrointestinal Gastrointestinal: Denies abdominal pain, diarrhea, melena, nausea or vomiting Genitourinary Genitourinary ED: Denies dysuria, hematuria or urinary frequency Musculoskeletal Musculoskeletal: Denies arthralgias, back pain, myalgias or neck pain Integumentary Denies rash Neurologic Neurologic: Denies headache(s) or paresthesias Psychiatric Psychiatric: Denies anxiety or depression Endocrine Endocrinology: Denies cold intolerance or heat intolerance Hematologic/Lymphatic Hematologic/Lymphatic: Denies easy bleeding or easy bruising EXAM <Dr. Jaylen Hernández MD - Last Filed: 03/20/25 10:21> Physical Exam Const Vital Signs: 03/19/25 21:46 03/19/25 21:57 03/19/25 22:46 Temperature 97.1 F L Temperature Source Temporal Pulse Rate 61 52 L Respiratory Rate 16 16 Respiratory Effort Normal Non-Labored Respiratory Pattern Normal Blood Pressure 157/84 H 128/76 H Blood Pressure Mean 108 93 Pulse Ox 99 96 Oxygen Delivery Method Room Air Room Air 03/20/25 00:00 03/20/25 00:53 Temperature 98 F Temperature Source Pulse Rate 67 47 L Respiratory Rate 16 16 Respiratory Effort Respiratory Pattern Blood Pressure 126/80 H 129/78 H Blood Pressure Mean 92 95 Pulse Ox 100 98 Oxygen Delivery Method Positive well nourished and well developed Constitutional Narrative: First blood pressure was elevated 157/84. Second blood pressure is 128/76. He is bradycardic. General Appearance ED: well developed and NAD; Negative for pallor HEENT Reports moist mucous membranes normocephalic and atraumatic Eyes PERRL and EOMs intact bilaterally General Eye ED: Negative for pale conjunctiva or scleral icterus Neck no lymphadenopathy, supple and no JVD Chest Wall inspection of chest normal and palpation of chest normal Resp normal respiratory effort and clear to auscultation bilaterally Cardio regular rate, regular rhythm, S1 normal heart sound, S2 normal heart sound and no murmurs Peripheral Pulses: pulses 2+ throughout GI normal to inspection, nondistended, normoactive bowel sounds, soft to palpation, non-tender, non-distended and no masses; Negative for hepatosplenomegaly Back/Spine no CVA tenderness and no thoracic nor lumbar tenderness Extremity normal to inspection General Extremety ED: Negative for edema, pulses abnormal or tenderness General Extremity: Negative for edema or pulses abnormal Neuro oriented x3 and CN's II-XII intact bilaterally Sensorium / Orientation: awake and alert Psych mental status grossly normal Skin no rashes or lesions noted and no wounds General Skin Exam: Negative for jaundice or pallor <Dr. Herb Perry DO - Last Filed: 03/20/25 00:53> Physical Exam Const Vital Signs: 03/19/25 21:46 03/19/25 21:57 03/19/25 22:46 Temperature 97.1 F L Temperature Source Temporal Pulse Rate 61 52 L Respiratory Rate 16 16 Respiratory Effort Normal Non-Labored Respiratory Pattern Normal Blood Pressure 157/84 H 128/76 H Blood Pressure Mean 108 93 Pulse Ox 99 96 Oxygen Delivery Method Room Air Room Air 03/20/25 00:00 03/20/25 00:53 Temperature 98 F Temperature Source Pulse Rate 67 47 L Respiratory Rate 16 16 Respiratory Effort Respiratory Pattern Blood Pressure 126/80 H 129/78 H Blood Pressure Mean 92 95 Pulse Ox 100 98 Oxygen Delivery Method [facility] <Dr. Jaylen Hernández MD - Last Filed: 03/20/25 10:21> [facility] Lab Data Attestation: I reviewed the patient's lab results. Lab results narrative: CBC is unremarkable there is slight lymphocytosis. Electrolyte panel is unremarkable. Glucose is 109. First troponin is normal at 8. Labs: Laboratory Results - last 24 hr 03/19/25 03/20/25 21:57 00:01 WBC 7.7 RBC 4.53 L Hgb 14.0 Hct 40.5 MCV 89.4 MCH 30.9 MCHC 34.6 RDW Std Deviation 38.8 RDW Coeff of Marcos 11.9 Plt Count 191 MPV 9.1 Immature Gran % (Auto) 0.100 Neut % (Auto) 45.7 L Lymph % (Auto) 42.9 H Nicol[place] % (Auto) 7.3 Eos % (Auto) 3.9 Baso % (Auto) 0.1 Absolute Neuts (auto) 3.5 Absolute Lymphs (auto) 3.31 Nucleated RBC % 0 Sodium 137 Potassium 3.8 Chloride 100 Carbon Dioxide 25.0 Anion Gap 12 BUN 12 Creatinine 0.98 Estim Creat Clear Calc 108.71 Est GFR (MDRD) Non-Af 98 BUN/Creatinine Ratio 12.0 Glucose 109 H Calcium 9.3 Troponin T High Sens 8 Troponin T Hi Sens 2 Hr 12 Radiography Chest X-Ray - ED: 1 View (Cardiac silhouette and size normal. There is no evidence of hiatal hernia. Lung parenchyma is normal. [place] is normal. There is no acute abnormality of the osseous structures.) Diagnostic Testing: Clinical Impression(s) from Imaging Studies Chest X-Ray 03/19/25 22:15 IMPRESSION: No focal consolidations. Reading Location: [facility] EKG Initial EKG: Attestation: I personally reviewed and interpreted this EKG as follows: Interpretation: Sinus Rhythm (Rate is 70. EKG is normal. The MD interval is 154 ms. Cures duration 98 ms. QT duration 394 ms. [place] is normal. There is artifact noted) Treatment and Re-Evaluation :: Patient was informed of his laboratory test as of 2311. He was told his EKG is normal. His chest x-ray was unremarkable. His blood work including his cardiac marker is normal. He states he did have improvement after the GI cocktail. He has been taking ibuprofen because of recent dental work. Suspect this is GI etiology. Plan is to discharge if 2-hour troponin is normal and there is no significant rise. Comments:: The night physician was made aware of the patient at 2340. Plan is to discharge if second troponin is normal and there is no significant rise in his 2-hour troponin. Suspect this is related to GI. If second troponin is normal patient will need a prescription for H2 lisa. And he will need to stop his ibuprofen. <Dr. Herb Perry, DO - Last Filed: 03/20/25 00:53> [facility] Narrative Medical decision making narrative: The patient was signed out to me while awaiting the results of his delta troponin. The initial troponin was 8 with a delta increased by a value of 4 to a level of 12 which is not clinically significant. The patient was pain-free upon reevaluation. He has been on a color television console monitor and there has been no abnormal cardiac rhythm. Therefore at this time with improvement of symptoms and overall negative workup I do not feel the need for further evaluation in the ER and is otherwise safe for discharge Lab Data Labs: Laboratory Results - last 24 hr 03/19/25 03/20/25 21:57 00:01 WBC 7.7 RBC 4.53 L Hgb 14.0 Hct 40.5 MCV 89.4 MCH 30.9 MCHC 34.6 RDW Std Deviation 38.8 RDW Coeff of Marcos 11.9 Plt Count 191 MPV 9.1 Immature Gran % (Auto) 0.100 Neut % (Auto) 45.7 L Lymph % (Auto) 42.9 H Nicol[place] % (Auto) 7.3 Eos % (Auto) 3.9 Baso % (Auto) 0.1 Absolute Neuts (auto) 3.5 Absolute Lymphs (auto) 3.31 Nucleated RBC % 0 Sodium 137 Potassium 3.8 Chloride 100 Carbon Dioxide 25.0 Anion Gap 12 BUN 12 Creatinine 0.98 Estim Creat Clear Calc 108.71 Est GFR (MDRD) Non-Af 98 BUN/Creatinine Ratio 12.0 Glucose 109 H Calcium 9.3 Troponin T High Sens 8 Troponin T Hi Sens 2 Hr 12 Radiography Diagnostic Testing: Clinical Impression(s) from Imaging Studies Chest X-Ray 03/19/25 22:15 IMPRESSION: No focal consolidations. Reading Location: [facility] Chest x-ray as interpreted by the emergency medicine physician reveals no acute infiltrate pneumothorax or pleural effusion Discharge Plan Triage Chief Complaint: Chest Pain ED Provider: EdgarJaylen Dx/Rx/DC Orders Clinical Impression: Chest pain due to GERD, Elevated blood-pressure reading without diagnosis of hypertension Instructions: ED Chest Pain, Uncertain Cause, ED GERD (Adult) Prescriptions: New famotidine [Pepcid] 40 mg tablet 40 mg PO DAILY Qty: 30 2RF Primary Care Provider: Care Physician,No Primary Referrals: Sandeep Haque MD [Med Staff - Active Staff, Family Practice] Care Physician,No Primary [Primary Care Provider, Medical] Activity Restrictions/Additional Instructions: Your workup today did not reveal any sign of abnormal cardiac rhythm or active heart damage. Based on your history and exam there is concern that your symptoms could be related to gastritis/GERD. Begin taking the Pepcid daily to help control this. Follow-up with your family doctor or Dr. Haque for repeat evaluation and return to the ER should you have any further concerns Print Language: Nigerian Disposition Disposition: Home, Self Care Discharge Date/Time: 03/20/25 00:56
[2025-03-20] VITALS: BP 126/80; PULSE 67; RESP 16; O2SAT 100
[2025-03-20 00:30] LABS: Troponin T High Sens 2 HR 12 ng/L (<=22)
[2025-03-20 00:53] VITALS: BP 129/78; PULSE 47; RESP 16; TEMP 36.6; O2SAT 98
== END 2025-03-20 00:56 | disposition home or self-care (01) ==
PROVIDERS: Emergency Provider Emergency Medicine; Visit Provider Emergency Medicine
DX: K21.9 Gastro-esophageal reflux disease without esophagitis (principal); R03.0 Elevated blood-pressure reading, without diagnosis of hypertension; Z87.891 Personal history of nicotine dependence; Z79.899 Other long term (current) drug therapy
CPT/HCPCS: 71045; 80048; 84484; 85025; 93005; 99285; A4216